=== PATIENT | male | born 1980 | race African-American/Black ===

== ENCOUNTER 2019-09-04 13:16 | Inpatient (IN) | payer OTHER ==
[2019-09-04 13:39] VITALS: BMI 20.3
--- NOTE | 2019-09-04 16:58 | HP ---
COWS - Scale Resting Pulse: 1= [place] 81-100 Sweatin=Flushed/Facial Moisture Restless Observation: 1= Difficult to Sit Still Pupil Size: 1= Pupils >than Normal (Pupils = 3 mm) Bone or Joint Aches: 1= Mild Discomfort Runny Nose/ Eye Tearin= None GI Upset > 30mins: 2= Nausea/Diarrhea Tremor Observation: 2= Slight Tremor Visible Yawning Observation: 0= None Anxiety or Irritability: 1=Feels Anxious/Irritable Goose Flesh Skin: 0=Smooth Skin COWS Score: 11 CIWA Score Nausea/Vomitin Muscle Tremors: 4-Moderate,w/Arms Extend Anxiety: 1-Mildly Anxious Agitation: 1-Slight > Activity Paroxysmal Sweats: 3 Orientation: 0-Oriented Tacttile Disturbances: 1-Very Mild Itch/Numbness Auditory Disturbances: 0-None Visual Disturbances: 0-None Headache: 0-None Present CIWA-Ar Total Score: 13 - Admission Criteria [facility] Guidelines: Admission for Medically Managed Detox: Requires at least one of the followin. CIWA greater than 12 2. Seizures within the past 24 hours 3. Delirium tremens within the past 24 hours 4. Hallucinations within the past 24 hours 5. Acute intervention needed for co occurring medical disorder 6. Acute intervention needed for co occurring psychiatric disorder 7. Severe withdrawal that cannot be handled at a lower level of care (continued vomiting, continued diarrhea, abnormal vital signs) requiring intravenous medication and/or fluids 8. Patient presents the following: CIWA greater than 12 Admission Criteria Met: Admission criteria met Admitting History and Physical - Smoking History Smoking history: Current every day smoker Have you smoked in the past 12 months: Yes Aproximately how many cigarettes per day: 15 - Alcohol/Substance Use Hx Alcohol Use: Yes (daily use) Admission [facility] Chief Complaint: I'm having withdrawal symptoms and I'm here to detox. Allergies/Adverse Reactions: Allergies Allergy/AdvReac Type Severity Reaction Status Date / Time No Known Allergies Allergy Verified 09/04/19 13:31 History of Present Illness: 38 yo presents w/ poly-substance use seeking detox. Last [facility] in 2014. Sober x 3 years until 5 months ago. Denies seizures, blackouts overdoses. ARYA: 0.017 Utox: + THC/ANYA/MOP Alcohol use began at age 13. Currently drinks 1-3 pints daily x 2 months. Last use approx 10 a.m. Heroin use began at age 31. Currently uses 2-3 bags/day. Nasal. Restarted x 2 months ago. Does not have a Narcan kit at home. Last use approx 10 a.m. Cocaine/crack use began at age 28. Currently uses $20-60 /day (Smokes and sniffs ) Marijuana use began at age 13. Currently smokes 2-6 blunts/day. Nicotine use began at age 13. Smokes 1/2 PPD. PMHx: Denies sign MHHx: Mild depression. Does not feel like harming self or others. SHx: Homeless. Unemployed. Court date 10/06/19. Patient Name: Galdino Eldridge Date: 1980 Address: [address] [place] [address] Sex: Male Rx Written Rx Dispensed Drug Quantity Days Supply Prescriber Name 06/27/2019 06/27/2019 chlordiazepoxide 25 mg capsule 15 5 Bigg, Ranti A Exam Limitations: No Limitations - Ebola screening Have you traveled outside of the country in the last 21 days: No Have you had contact with anyone from an Ebola affected area: No Have you been sick,other than usual withdrawal symptoms: No Do you have a fever: No - Review of Systems Constitutional: Chills, Diaphoresis, Unintentional Wgt. Loss EENT: reports: No Symptoms Reported Respiratory: reports: No Symptoms reported Cardiac: reports: No Symptoms Reported GI: reports: Diarrhea (Watery, brownish earlier today), Nausea, Vomiting ( Yesterday.) : reports: No Symptoms Reported Musculoskeletal: reports: No Symptoms Reported Integumentary: reports: No Symptoms Reported Neuro: reports: Tremors Endocrine: reports: Increased Thirst Hematology: reports: Anemia (lOW IRON) Psychiatric: reports: Mood/Affect Appropiate, Orientated x3, Agitated, Anxious Patient History - Patient Medical History Hx Anemia: No Hx Asthma: No Hx Chronic Obstructive Pulmonary Disease (COPD): Yes (symbicort & albuterol) Hx Cancer: No Hx Cardiac Disorders: No Hx Congestive Heart Failure: No Hx Hypertension: No Hx Hypercholesterolemia: No Hx Pacemaker: No HX Cerebrovascular Accident: No Hx Seizures: No Hx Dementia: No Hx Diabetes: No Hx Gastrointestinal Disorders: No Hx Liver Disease: No Hx Genitourinary Disorders: No Hx Sexually Transmitted Disorders: No Hx Renal Disease (ESRD): No Hx Thyroid Disease: No Hx Human Immunodeficiency Virus (HIV): No (2 mos neg) Hx Hepatitis C: No Hx Depression: Yes Hx Suicide Attempt: No Hx Bipolar Disorder: No Hx Schizophrenia: No - Patient Surgical History Past Surgical History: No Hx Neurologic Surgery: No Hx Cataract Extraction: No Hx Cardiac Surgery: No Hx Lung Surgery: No Hx Breast Surgery: No Hx Breast Biopsy: No Hx Abdominal Surgery: No Hx Appendectomy: No Hx Cholecystectomy: No Hx Genitourinary Surgery: No Hx Section: No Hx Orthopedic Surgery: No - PPD History Previous Implant?: Yes Documented Results: Negative w/proof Implanted On Prior R Admission?: Yes Date: 04/25/15 Results: Neg PPD to be Administered?: Yes - Smoking Cessation Smoking history: Current every day smoker Have you smoked in the past 12 months: Yes Aproximately how many cigarettes per day: 10 Hx Chewing Tobacco Use: No Initiated information on smoking cessation: Yes 'Breaking Loose' booklet given: 09/04/19 - Substance & Tx. History Hx Alcohol Use: Yes Hx Substance Use: Yes Substance Use Type: Alcohol, Cocaine, Heroin, Marijuana, Opiates Hx Substance Use Treatment: Yes (DETOX, REHAB, No OTP) - Substances abused Alcohol Substance route: Oral Frequency: Daily Amount used: 1-2 pints of vodka Age of first use: 13 Date of last use: 09/04/19 Heroin Substance route: Inhalation Frequency: Daily Amount used: 2-3 bags Age of first use: 36 Date of last use: 09/04/19 Cocaine Substance route: Inhalation Frequency: Daily Amount used: $40-60 Age of first use: 28 Date of last use: 09/04/19 Marijuana/Hashish Substance route: Smoking Frequency: Daily Amount used: 3-6 blunts Age of first use: 13 Date of last use: 09/03/19 Crack Substance route: Smoking Frequency: Daily Amount used: $40 -60 Age of first use: 28 Date of last use: 09/04/19 Admission Physical Exam BHS - Vital Signs Vital Signs: Vital Signs - 24 hr 09/04/19 13:31 Temperature 97.8 F Pulse Rate 86 Respiratory 20 Rate Blood Pressure 119/83 - Physical General Appearance: Yes: Nourished, Mild Distress, Tremorous, Sweating ( Increased facial moisture), Anxious HEENTM: Yes: EOMI, Hearing grossly Normal, Normocephalic, Normal Voice, JANELL ( Pupils = 3 mm), Pharynx Normal Respiratory: Yes: Lungs Clear (O2 = 97 %), Normal Breath Sounds, No Respiratory Distress Neck: Yes: No masses,lesions,Nodules, Supple Breast: Yes: Breast Exam Deferred Cardiology: Yes: Regular Rhythm, Regular Rate, S1, S2 Abdominal: Yes: Non Tender, Flat, Soft, Increased Bowel Sounds Genitourinary: Yes: Within Normal Limits Back: Yes: Normal Inspection Musculoskeletal: Yes: full range of Motion, Gait Steady Extremities: Yes: Normal Capillary Refill, Normal Range of Motion, Tremors 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: 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, Fully Oriented, Alert, Motor Strength 5/5 Integumentary: Yes: Normal Color, Warm, Diaphoresis (Increased facial moisture) Lymphatic: Yes: Within Normal Limits - Diagnostic (1) Alcohol dependence with withdrawal, uncomplicated Current Visit: Yes Status: Acute (2) Opioid dependence with withdrawal Current Visit: Yes Status: Acute (3) Cannabis dependence, uncomplicated Current Visit: Yes Status: Chronic (4) Cocaine dependence, uncomplicated Current Visit: Yes Status: Chronic (5) Nicotine dependence, cigarettes, uncomplicated Current Visit: Yes Status: Chronic Cleared for Admission [facility] - Detox or Rehab [facility] Level of Care: Medically Managed Detox Regimen/Protocol: Methadone/Librium Claeared for Rehab Admission: No Breathalyzer - Breathalyzer Breathalyzer: 0.017 Urine Drug Screen - Test Device Lot number: [id number] Expiration date: 04/30/21 - Control Is test valid?: Yes - Results Drug screen NEGATIVE: No Urine drug screen results: THC-Marijuana, ANYA-Cocaine, MOP-Opiates Inpatient Rehab Admission - Rehab Decision to Admit Inpatient rehab admission?: No
[2019-09-04] MEDS ORDERED: MAGNESIUM CITRATE 300 ML BOTTLE PO PRN (17:18)
[2019-09-04] MEDS ORDERED: IBUPROFEN 400 MG TABLET (FP) PO PRN (17:18)
[2019-09-04] MEDS ORDERED: NICOTINE POLACRILEX 2 MG GUM BUC PRN (17:18)
[2019-09-04] MEDS ORDERED: ACETAMINOPHEN 325 MG TABLET (FP) PO PRN ×2 (17:18)
[2019-09-04] MEDS ORDERED: MENTHOL/PHENOL 1 EACH UD MM PRN (17:18)
[2019-09-04] MEDS ORDERED: P-EPHED 60MG/TRIPROLIDI 2.5MG TABLET PO PRN (17:18)
[2019-09-04] MEDS ORDERED: chlordiazePOXIDE HCL 25 MG CAPSULE PO PRN (17:18)
[2019-09-04] MEDS ORDERED: MAG HYDROX/AL HYDROX/SIMETH 30 ML UNIT-DOSE CUP PO PRN (17:18)
[2019-09-04] MEDS ORDERED: MAGNESIUM HYDROX 2400MG/30ML ORAL SUSPENSION 30 ML CUP PO PRN (17:18)
[2019-09-04] MEDS ORDERED: BISMUTH SUBSALICYLATE 524 MG/30 ML UD PO PRN (17:18)
[2019-09-04] MEDS ORDERED: METHADONE HCL 10 MG TABLET (FOR DETOX USE ONLY) PO ONE (22:00)
[2019-09-04] MEDS: THIAMINE HCL 100 MG TABLET (FP) PO SCH (22:07)
[2019-09-04] MEDS: MELATONIN 5 MG TABLETS PO PRN (22:07)
[2019-09-04] MEDS: chlordiazePOXIDE HCL 25 MG CAPSULE PO SCH (22:07)
[2019-09-05] MEDS: chlordiazePOXIDE HCL 25 MG CAPSULE PO SCH ×4 (05:08→22:05)
--- NOTE | 2019-09-05 09:14 | EKG ---
Test Reason : Blood Pressure : / mmHG Vent. Rate : 059 BPM Atrial Rate : 059 BPM P-R Int : 136 ms QRS Dur : 098 ms QT Int : 434 ms P-R-T Axes : 044 056 051 degrees QTc Int : 429 ms SINUS BRADYCARDIA INCOMPLETE RIGHT BUNDLE BRANCH BLOCK BORDERLINE ECG NO PREVIOUS ECGS AVAILABLE Confirmed by MD Leonor, Jasvir ([id number]) on 09/05/2019 9:14:26 AM Referred By: GREER VILLARREAL Confirmed By:Jasvir Galvez MD
[2019-09-05 09:35] LABS: HEMATOCRIT 38.3 % (35.4-49); HEMOGLOBIN 12.9 GM/dL (11.7-16.9); MCH 32.9 pg (25.7-33.7); MCHC 33.7 g/dl (32.0-35.9); MEAN CELL VOLUME 97.7 fl (80-96); MEAN PLT VOLUME 8.5 fl (7.5-11.1); PLATELET COUNT 210 K/MM3 (134-434); RBC 3.92 M/mm3 (4.00-5.60); RDW 14.1 % (11.9-15.9); WHITE BLOOD COUNT 5.4 K/mm3 (4.0-10.0)
[2019-09-05 09:51] LABS: ALBUMIN 3.5 g/dl (3.4-5.0); BILIRUBIN,TOTAL 0.4 mg/dL (0.2-1); BLOOD UREA NITROGEN 20.7 mg/dL (7-18); CALCIUM 8.8 mg/dL (8.5-10.1); POTASSIUM 4.6 mmol/L (3.5-5.1); TOT PROT 6.4 g/dl (6.4-8.2)
[2019-09-05] MEDS ORDERED: METHADONE HCL 5 MG TABLET (FOR DETOX USE ONLY) PO ONE (10:00)
[2019-09-05] MEDS: NICOTINE 14 MG/24 HOURS TOPICAL PATCH TD SCH (10:26)
[2019-09-05] MEDS: PRENATAL VITAMINS W/ FOLIC ACID TABLET (FP) PO SCH (10:29)
--- NOTE | 2019-09-05 13:11 | PN ---
[facility] CIWA - CIWA Score Nausea/Vomitin-No Nausea/No Vomiting Muscle Tremors: 3 Anxiety: 3 Agitation: 2 Paroxysmal Sweats: 2 Orientation: 0-Oriented Tacttile Disturbances: 0-None Auditory Disturbances: 0-None Visual Disturbances: 0-None Headache: 0-None Present CIWA-Ar Total Score: 10 S COWS - Scale Resting Pulse: 0= [place] 80 or Below Sweatin= Chills/Flushing Restless Observation: 0= Sits Still Pupil Size: 0= Normal to Room Light Bone or Joint Aches: 1= Mild Discomfort Runny Nose/ Eye Tearin= None GI Upset > 30mins: 2= Nausea/Diarrhea Tremor Observation of Outstretched Hands: 0= None Yawning Observation: 2= >3x During Session Anxiety or Irritability: 1=Feels Anxious/Irritable Goose Flesh Skin: 3=Piloerection COWS Score: 10 [facility] Progress Note (SOAP) Subjective: 38 years old male admitted on 09/04/19 for alcohol and opiate withdrawal sx management treated wtih librium and methadone detox regimen patient tolerated well ate breakfast resting on bed limited conversation with staff Objective: 09/05/19 13:11 Vital Signs Temperature 97.3 F L 09/05/19 13:08 Pulse Rate 62 09/05/19 13:08 Respiratory Rate 16 09/05/19 13:08 Blood Pressure 103/59 L 09/05/19 13:08 O2 Sat by Pulse Oximetry (%) Laboratory Last Values WBC 5.4 K/mm3 (4.0-10.0) 09/05/19 08:00 RBC 3.92 M/mm3 (4.00-5.60) L 09/05/19 08:00 Hgb 12.9 GM/dL (11.7-16.9) 09/05/19 08:00 Hct 38.3 % (35.4-49) 09/05/19 08:00 MCV 97.7 fl (80-96) H 09/05/19 08:00 MCH 32.9 pg (25.7-33.7) 09/05/19 08:00 MCHC 33.7 g/dl (32.0-35.9) 09/05/19 08:00 RDW 14.1 % (11.9-15.9) 09/05/19 08:00 Plt Count 210 K/MM3 (134-434) 09/05/19 08:00 MPV 8.5 fl (7.5-11.1) 09/05/19 08:00 Sodium 140 mmol/L (136-145) 09/05/19 08:00 Potassium 4.6 mmol/L (3.5-5.1) 09/05/19 08:00 Chloride 108 mmol/L (98-107) H 09/05/19 08:00 Carbon Dioxide 29 mmol/L (21-32) 09/05/19 08:00 Anion Gap 4 MMOL/L (8-16) L 09/05/19 08:00 BUN 20.7 mg/dL (7-18) H 09/05/19 08:00 Creatinine 1.0 mg/dL (0.55-1.3) 09/05/19 08:00 Est GFR (CKD-EPI)AfAm 110.94 09/05/19 08:00 Est GFR (CKD-EPI)NonAf 95.72 09/05/19 08:00 Random Glucose 90 mg/dL (74-106) 09/05/19 08:00 Calcium 8.8 mg/dL (8.5-10.1) 09/05/19 08:00 Total Bilirubin 0.4 mg/dL (0.2-1) 09/05/19 08:00 AST 18 U/L (15-37) 09/05/19 08:00 ALT 21 U/L (13-61) 09/05/19 08:00 Alkaline Phosphatase 56 U/L (45-117) 09/05/19 08:00 Total Protein 6.4 g/dl (6.4-8.2) 09/05/19 08:00 Albumin 3.5 g/dl (3.4-5.0) 09/05/19 08:00 HIV 1&2 Antibody Screen Negative 09/05/19 08:00 HIV P24 Antigen Negative 09/05/19 08:00 lab noted Assessment: 09/05/19 13:11 alcohol and opiate withdrawal sx Plan: continue librium and methadone detox regimen
[2019-09-05] MEDS: THIAMINE HCL 100 MG TABLET (FP) PO SCH (22:05)
[2019-09-05] MEDS: MELATONIN 5 MG TABLETS PO PRN (22:06)
[2019-09-06] MEDS: chlordiazePOXIDE HCL 25 MG CAPSULE PO SCH ×4 (05:14→22:08)
--- NOTE | 2019-09-06 09:59 | PN ---
S CIWA - CIWA Score Nausea/Vomitin-No Nausea/No Vomiting Muscle Tremors: 2 Anxiety: 3 Agitation: 2 Paroxysmal Sweats: 2 Orientation: 0-Oriented Tacttile Disturbances: 0-None Auditory Disturbances: 0-None Visual Disturbances: 0-None Headache: 0-None Present CIWA-Ar Total Score: 9 [facility] COWS - Scale Resting Pulse: 0= [place] 80 or Below Sweatin= Chills/Flushing Restless Observation: 0= Sits Still Pupil Size: 0= Normal to Room Light Bone or Joint Aches: 1= Mild Discomfort Runny Nose/ Eye Tearin= Nasal Congestion GI Upset > 30mins: 1= Stomach Cramp Tremor Observation of Outstretched Hands: 2= Slight Tremor Visible Yawning Observation: 1= 1-2x During Session Anxiety or Irritability: 2=Irritable/Anxious Goose Flesh Skin: 0=Smooth Skin COWS Score: 9 S Progress Note (SOAP) Subjective: 38 years old male admitted on 09/04/19 for alcohol and opiate withdrawal sx management treated with librium and methadone detox regimen change methadone 15 mg maintenance to detox regimen patient tolerated well Objective: 09/06/19 09:59 Vital Signs Temperature 97.8 F 09/06/19 09:19 Pulse Rate 60 09/06/19 09:19 Respiratory Rate 16 09/06/19 09:19 Blood Pressure 100/63 09/06/19 09:19 O2 Sat by Pulse Oximetry (%) Laboratory Last Values WBC 5.4 K/mm3 (4.0-10.0) 09/05/19 08:00 RBC 3.92 M/mm3 (4.00-5.60) L 09/05/19 08:00 Hgb 12.9 GM/dL (11.7-16.9) 09/05/19 08:00 Hct 38.3 % (35.4-49) 09/05/19 08:00 MCV 97.7 fl (80-96) H 09/05/19 08:00 MCH 32.9 pg (25.7-33.7) 09/05/19 08:00 MCHC 33.7 g/dl (32.0-35.9) 09/05/19 08:00 RDW 14.1 % (11.9-15.9) 09/05/19 08:00 Plt Count 210 K/MM3 (134-434) 09/05/19 08:00 MPV 8.5 fl (7.5-11.1) 09/05/19 08:00 Sodium 140 mmol/L (136-145) 09/05/19 08:00 Potassium 4.6 mmol/L (3.5-5.1) 09/05/19 08:00 Chloride 108 mmol/L (98-107) H 09/05/19 08:00 Carbon Dioxide 29 mmol/L (21-32) 09/05/19 08:00 Anion Gap 4 MMOL/L (8-16) L 09/05/19 08:00 BUN 20.7 mg/dL (7-18) H 09/05/19 08:00 Creatinine 1.0 mg/dL (0.55-1.3) 09/05/19 08:00 Est GFR (CKD-EPI)AfAm 110.94 09/05/19 08:00 Est GFR (CKD-EPI)NonAf 95.72 09/05/19 08:00 Random Glucose 90 mg/dL (74-106) 09/05/19 08:00 Calcium 8.8 mg/dL (8.5-10.1) 09/05/19 08:00 Total Bilirubin 0.4 mg/dL (0.2-1) 09/05/19 08:00 AST 18 U/L (15-37) 09/05/19 08:00 ALT 21 U/L (13-61) 09/05/19 08:00 Alkaline Phosphatase 56 U/L (45-117) 09/05/19 08:00 Total Protein 6.4 g/dl (6.4-8.2) 09/05/19 08:00 Albumin 3.5 g/dl (3.4-5.0) 09/05/19 08:00 RPR Titer Nonreactive (NONREACTIVE) 09/05/19 08:00 HIV 1&2 Antibody Screen Negative 09/05/19 08:00 HIV P24 Antigen Negative 09/05/19 08:00 lab noted Assessment: 09/06/19 09:59 alcohol and opiate withdrawal sx Plan: continue librium and methadone detox regimen
[2019-09-06] MEDS ORDERED: METHADONE HCL 5 MG TABLET (FOR DETOX USE ONLY) PO ONE (10:00)
[2019-09-06] MEDS ORDERED: METHADONE HCL 10 MG TABLET PO ONE (10:00)
[2019-09-06] MEDS: PRENATAL VITAMINS W/ FOLIC ACID TABLET (FP) PO SCH (10:43)
[2019-09-06] MEDS: NICOTINE 14 MG/24 HOURS TOPICAL PATCH TD SCH (10:43)
[2019-09-06] MEDS ORDERED: ONDANSETRON *ODT* 4 MG TABLET SL ONE (14:29)
[2019-09-06] MEDS: THIAMINE HCL 100 MG TABLET (FP) PO SCH (22:08)
[2019-09-06] MEDS: MELATONIN 5 MG TABLETS PO PRN (22:08)
[2019-09-07] MEDS ORDERED: chlordiazePOXIDE HCL 10 MG CAPSULE PO PRN
[2019-09-07] MEDS: chlordiazePOXIDE HCL 10 MG CAPSULE PO SCH ×4 (05:40→22:12)
[2019-09-07] MEDS ORDERED: METHADONE HCL 10 MG TABLET (FOR DETOX USE ONLY) PO ONE (10:00)
[2019-09-07] MEDS: NICOTINE 14 MG/24 HOURS TOPICAL PATCH TD SCH (10:22)
[2019-09-07] MEDS: PRENATAL VITAMINS W/ FOLIC ACID TABLET (FP) PO SCH (10:22)
[2019-09-07 12:01] LABS: PH,URINE 5.5 (5.0-8.0); URINE APPEARANCE CLEAR; URINE BILIRUBIN NEGATIVE (NEGATIVE); URINE COLOR YELLOW; URINE GLUCOSE (UA) NEGATIVE (NEGATIVE); URINE KETONE NEGATIVE (NEGATIVE); URINE LEUK ESTERASE NEGATIVE (NEGATIVE); URINE NITRITE NEGATIVE (NEGATIVE); URINE PROTEIN NEGATIVE (NEGATIVE)
--- NOTE | 2019-09-07 14:32 | PN ---
S CIWA - CIWA Score Nausea/Vomitin-No Nausea/No Vomiting Muscle Tremors: 2 Anxiety: 2 Agitation: 2 Paroxysmal Sweats: No Perspiration Orientation: 0-Oriented Tacttile Disturbances: 0-None Auditory Disturbances: 0-None Visual Disturbances: 0-None Headache: 0-None Present CIWA-Ar Total Score: 6 [facility] COWS - Scale Resting Pulse: 0= [place] 80 or Below Sweatin= Chills/Flushing Restless Observation: 0= Sits Still Pupil Size: 0= Normal to Room Light Bone or Joint Aches: 1= Mild Discomfort Runny Nose/ Eye Tearin= Nasal Congestion GI Upset > 30mins: 1= Stomach Cramp Tremor Observation of Outstretched Hands: 1= Tremor [place], Not Seen Yawning Observation: 0= None Anxiety or Irritability: 1=Feels Anxious/Irritable Goose Flesh Skin: 0=Smooth Skin COWS Score: 6 S Progress Note (SOAP) Subjective: 38 years old male admitted on 09/04/19 for alcohol and opiate withdrawal sx management treated with librium and methadone detox regimen patient tolerated well less tremor mild body aches ate breakfast tolerated food and fluid well Objective: 09/07/19 14:33 Vital Signs Temperature 99 F 09/07/19 13:10 Pulse Rate 52 L 09/07/19 13:10 Respiratory Rate 18 09/07/19 13:10 Blood Pressure 96/64 09/07/19 13:10 O2 Sat by Pulse Oximetry (%) Laboratory Last Values WBC 5.4 K/mm3 (4.0-10.0) 09/05/19 08:00 RBC 3.92 M/mm3 (4.00-5.60) L 09/05/19 08:00 Hgb 12.9 GM/dL (11.7-16.9) 09/05/19 08:00 Hct 38.3 % (35.4-49) 09/05/19 08:00 MCV 97.7 fl (80-96) H 09/05/19 08:00 MCH 32.9 pg (25.7-33.7) 09/05/19 08:00 MCHC 33.7 g/dl (32.0-35.9) 09/05/19 08:00 RDW 14.1 % (11.9-15.9) 09/05/19 08:00 Plt Count 210 K/MM3 (134-434) 09/05/19 08:00 MPV 8.5 fl (7.5-11.1) 09/05/19 08:00 Sodium 140 mmol/L (136-145) 09/05/19 08:00 Potassium 4.6 mmol/L (3.5-5.1) 09/05/19 08:00 Chloride 108 mmol/L (98-107) H 09/05/19 08:00 Carbon Dioxide 29 mmol/L (21-32) 09/05/19 08:00 Anion Gap 4 MMOL/L (8-16) L 09/05/19 08:00 BUN 20.7 mg/dL (7-18) H 09/05/19 08:00 Creatinine 1.0 mg/dL (0.55-1.3) 09/05/19 08:00 Est GFR (CKD-EPI)AfAm 110.94 09/05/19 08:00 Est GFR (CKD-EPI)NonAf 95.72 09/05/19 08:00 Random Glucose 90 mg/dL (74-106) 09/05/19 08:00 Calcium 8.8 mg/dL (8.5-10.1) 09/05/19 08:00 Total Bilirubin 0.4 mg/dL (0.2-1) 09/05/19 08:00 AST 18 U/L (15-37) 09/05/19 08:00 ALT 21 U/L (13-61) 09/05/19 08:00 Alkaline Phosphatase 56 U/L (45-117) 09/05/19 08:00 Total Protein 6.4 g/dl (6.4-8.2) 09/05/19 08:00 Albumin 3.5 g/dl (3.4-5.0) 09/05/19 08:00 Urine Color Yellow 09/07/19 10:00 Urine Appearance Clear 09/07/19 10:00 Urine pH 5.5 (5.0-8.0) D 09/07/19 10:00 Ur Specific [place] 1.012 (1.010-1.035) 09/07/19 10:00 Urine Protein Negative (NEGATIVE) 09/07/19 10:00 Urine Glucose (UA) Negative (NEGATIVE) 09/07/19 10:00 Urine Ketones Negative (NEGATIVE) 09/07/19 10:00 Urine Blood Negative (NEGATIVE) 09/07/19 10:00 Urine Nitrite Negative (NEGATIVE) 09/07/19 10:00 Urine Bilirubin Negative (NEGATIVE) 09/07/19 10:00 Urine Urobilinogen 1.0 mg/dL (0.2-1.0) 09/07/19 10:00 Ur Leukocyte Esterase Negative (NEGATIVE) 09/07/19 10:00 RPR Titer Nonreactive (NONREACTIVE) 09/05/19 08:00 HIV 1&2 Antibody Screen Negative 09/05/19 08:00 HIV P24 Antigen Negative 09/05/19 08:00 lab noted Assessment: 09/07/19 14:34 alcohol and opiate withdrawal sx Plan: continue librium and methadone detox regimen
[2019-09-07] MEDS: MELATONIN 5 MG TABLETS PO PRN (22:12)
[2019-09-07] MEDS: THIAMINE HCL 100 MG TABLET (FP) PO SCH (22:12)
[2019-09-08] MEDS: chlordiazePOXIDE HCL 10 MG CAPSULE PO SCH ×2 (05:01→17:32)
[2019-09-08] MEDS ORDERED: METHADONE HCL 5 MG TABLET (FOR DETOX USE ONLY) PO ONE (06:00)
--- NOTE | 2019-09-08 09:26 | PN ---
[facility] CIWA - CIWA Score Nausea/Vomitin-No Nausea/No Vomiting Muscle Tremors: 1-None Visible, but [place] Anxiety: 1-Mildly Anxious Agitation: 1-Slight > Activity Paroxysmal Sweats: No Perspiration Orientation: 0-Oriented Tacttile Disturbances: 0-None Auditory Disturbances: 0-None Visual Disturbances: 0-None Headache: 0-None Present CIWA-Ar Total Score: 3 [facility] Progress Note (SOAP) Subjective: alert,irritable,anxious Objective: 09/08/19 09:25 Vital Signs Temperature 97.6 F 09/08/19 09:20 Pulse Rate 49 L 09/08/19 09:20 Respiratory Rate 18 09/08/19 09:20 Blood Pressure 106/72 09/08/19 09:20 O2 Sat by Pulse Oximetry (%) Assessment: 09/08/19 09:25 withdrawal symptom Plan: continue detox,discharge in am
[2019-09-08] MEDS: PRENATAL VITAMINS W/ FOLIC ACID TABLET (FP) PO SCH (09:58)
[2019-09-08] MEDS: NICOTINE 14 MG/24 HOURS TOPICAL PATCH TD SCH (09:58)
[2019-09-08] MEDS ORDERED: chlordiazePOXIDE HCL 10 MG CAPSULE PO ONE (20:59)
[2019-09-08] MEDS: THIAMINE HCL 100 MG TABLET (FP) PO SCH (21:08)
[2019-09-08] MEDS: MELATONIN 5 MG TABLETS PO PRN (21:09)
[2019-09-08 21:34] VITALS: PULSE 62
[2019-09-09] MEDS ORDERED: chlordiazePOXIDE HCL 10 MG CAPSULE PO ONE (05:00)
[2019-09-09 06:05] VITALS: BP 91/69; TEMP 97.6
== END 2019-09-09 06:40 | disposition home or self-care (01) | DRG 773 ==
LOC: YASAS 13:16 → Y3N 17:49
PROVIDERS: ADMIT Allergy & Immunology; ATTEND Allergy & Immunology
PROC: HZ2ZZZZ Detoxification Services for Substance Abuse Treatment (ICD-10-PCS; principal; 2019-09-04)
DX: F10.230 Alcohol dependence with withdrawal, uncomplicated (principal); F11.23 Opioid dependence with withdrawal; F14.20 Cocaine dependence, uncomplicated; F12.20 Cannabis dependence, uncomplicated; F17.210 Nicotine dependence, cigarettes, uncomplicated
CPT/HCPCS: 36415; 80053; 81003; 85027; 86593; 87389; 93005; 93010; Q0162

== ENCOUNTER 2019-10-13 12:52 | Inpatient (IN) | payer OTHER ==
[2019-10-13 14:51] VITALS: BMI 22.8
--- NOTE | 2019-10-13 16:09 | HP ---
CIWA Score Nausea/Vomitin Muscle Tremors: 1-None Visible, but [place] Anxiety: 1-Mildly Anxious Agitation: 1-Slight > Activity Paroxysmal Sweats: No Perspiration Orientation: 0-Oriented Tacttile Disturbances: 0-None Auditory Disturbances: 0-None Visual Disturbances: 0-None Headache: 0-None Present CIWA-Ar Total Score: 5 - Admission Criteria OASAS Guidelines: Admission for Medically Managed Detox: Requires at least one of the followin. CIWA greater than 12 2. Seizures within the past 24 hours 3. Delirium tremens within the past 24 hours 4. Hallucinations within the past 24 hours 5. Acute intervention needed for co occurring medical disorder 6. Acute intervention needed for co occurring psychiatric disorder 7. Severe withdrawal that cannot be handled at a lower level of care (continued vomiting, continued diarrhea, abnormal vital signs) requiring intravenous medication and/or fluids 8. Admitting History and Physical - Admission History of Present Illness: Pt is a 39 yo M with no known PMHx presenting for detox from alcohol, also uses Marijuana and cocaine. Denies mental health issues, Said he used paxel in past. ETOH Last drink last night about 11pm Drank 2pints of liqour Drinks 1-3 pints of liqour daily Has been drinking daily for the past 4 months Last here 09/19 also went to detox in [facility] program Has had rehab in past for 28 days about 4 months ago Never seized, never had blackouts, but gets the shakes Started to use at 13 years old THC-utox positive Uses 3-6blunts a day Started to use at 13 years old Last use this am -2 blunts Cocaine - utox positive Snorts cocaine $20-40 a day Snorts most days Hep C- neg in past HIV- neg in past- 2 weeks ago Does not inject cocaine Last use- yesterday, used $30 worth Benzos- utox positive xanax- lately sporadic use 7-8 sticks a week Last use 5 days ago Nicotine 10 cigs/day Started to smoke at 13 weeks Wants the patch and gum Heroin Stopped 1-2 weeks ago Was snorting 2 bags per day, never injected, never overdosed Stopped for no reason, had some withdrawal symptoms Did not use any medications to help the withdrawal and has never been in a MMTP or suboxone program FHX No addiction hx No medical problems Mother, 2 sisters, 1 brother Social hx: Homeless for 4 months, unable to keep up with bills 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 Allergies/Adverse Reactions: Allergies Allergy/AdvReac Type Severity Reaction Status Date / Time No Known Allergies Allergy Verified 10/13/19 14:45 - Ebola screening Have you traveled outside of the country in the last 21 days: No Have you had contact with anyone from an Ebola affected area: No Do you have a fever: No - Review of Systems Constitutional: Chills EENT: reports: No Symptoms Reported Respiratory: reports: No Symptoms reported Patient History - Patient Medical History Hx Anemia: No Hx Asthma: No Hx Chronic Obstructive Pulmonary Disease (COPD): Yes (symbicort & albuterol) Hx Cancer: No Hx Cardiac Disorders: No Hx Congestive Heart Failure: No Hx Hypertension: No Hx Hypercholesterolemia: No Hx Pacemaker: No HX Cerebrovascular Accident: No Hx Seizures: No Hx Dementia: No Hx Diabetes: No Hx Gastrointestinal Disorders: No Hx Liver Disease: No Hx Genitourinary Disorders: No Hx Sexually Transmitted Disorders: No Hx Renal Disease (ESRD): No Hx Thyroid Disease: No Hx Human Immunodeficiency Virus (HIV): No (2 mos neg) Hx Hepatitis C: No Hx Depression: Yes Hx Suicide Attempt: No Hx Bipolar Disorder: No Hx Schizophrenia: No - Patient Surgical History Past Surgical History: No Hx Neurologic Surgery: No Hx Cataract Extraction: No Hx Cardiac Surgery: No Hx Lung Surgery: No Hx Breast Surgery: No Hx Breast Biopsy: No Hx Abdominal Surgery: No Hx Appendectomy: No Hx Cholecystectomy: No Hx Genitourinary Surgery: No Hx Section: No Hx Orthopedic Surgery: No - PPD History Date: 09/06/19 Results: Neg - Smoking Cessation Smoking history: Current every day smoker Have you smoked in the past 12 months: Yes Aproximately how many cigarettes per day: 10 Hx Chewing Tobacco Use: No Initiated information on smoking cessation: Yes 'Breaking Loose' booklet given: 10/13/19 - Substances abused Alcohol Substance route: Oral Frequency: Daily Amount used: 1-2 pints of vodka Age of first use: 13 Date of last use: 10/12/19 Heroin Substance route: Inhalation Frequency: Daily Amount used: 2-3 bags Age of first use: 36 Date of last use: 10/06/19 Cocaine Substance route: Inhalation Frequency: 3-6 times per week Amount used: $40-60 Age of first use: 28 Date of last use: 10/12/19 Marijuana/Hashish Substance route: Smoking Frequency: Daily Amount used: 3-6 blunts Age of first use: 13 Date of last use: 10/13/19 Crack Substance route: Smoking Frequency: Daily Amount used: $40 -60 Age of first use: 28 Date of last use: 09/04/19 Admission Physical Exam [facility] - Vital Signs Vital Signs: Vital Signs - 24 hr 10/13/19 14:45 Temperature 97.8 F Pulse Rate 88 Respiratory 20 Rate Blood Pressure 110/68 - Physical General Appearance: Yes: No Apparent Distress HEENTM: Yes: Within Normal Limits Respiratory: Yes: Chest Non-Tender, Lungs Clear, Normal Breath Sounds Neck: Yes: Within Normal Limits Breast: Yes: Breast Exam Deferred Cardiology: Yes: Regular Rhythm, Regular Rate Abdominal: Yes: Within Normal Limits Genitourinary: Yes: Within Normal Limits Back: Yes: Within Normal Limits Musculoskeletal: Yes: Within Normal Limits Extremities: Yes: Within Normal Limits 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: Fully Oriented, Alert, Motor Strength 5/5 Integumentary: Yes: Within Normal Limits Lymphatic: Yes: Within Normal Limits - Diagnostic (1) Alcohol dependence Current Visit: No Status: Active Cleared for Admission [facility] - Detox or Rehab [facility] Level of Care: Medically Supervised Breathalyzer - Breathalyzer Breathalyzer: 0 Urine Drug Screen - Test Device Lot number: [id number] Expiration date: 05/31/21 - Control Is test valid?: Yes - Results Drug screen NEGATIVE: No Urine drug screen results: THC-Marijuana, ANYA-Cocaine, MOP-Opiates Inpatient Rehab Admission - Rehab Decision to Admit Inpatient rehab admission?: Yes - Initial Determination Are CD services needed?: Yes Free of communicable disease: Yes Not in need of hospitalization: Yes - Rehab Admission Criteria Previous failed treatment: Yes Poor recovery environment: Yes Comorbidities: Yes Lacks judgement: Yes Patient is meeting Inpatient Rehab admission criteria:: Yes (For alcohol, marijuana and cocaine use)
[2019-10-13] MEDS ORDERED: IBUPROFEN 400 MG TABLET (FP) PO PRN (16:25)
[2019-10-13] MEDS ORDERED: MENTHOL/PHENOL 1 EACH UD MM PRN (16:25)
[2019-10-13] MEDS ORDERED: P-EPHED 60MG/TRIPROLIDI 2.5MG TABLET PO PRN (16:25)
[2019-10-13] MEDS ORDERED: guaiFENesin 200 MG/10 ML 10 ML UNIT-DOSE CUPS PO PRN (16:25)
[2019-10-13] MEDS ORDERED: MAGNESIUM HYDROX 2400MG/30ML ORAL SUSPENSION 30 ML CUP PO PRN (16:25)
[2019-10-13] MEDS ORDERED: LOPERAMIDE HCL 2 MG CAPSULE PO PRN (16:25)
[2019-10-13] MEDS ORDERED: hydrOXYzine PAMOATE 50 MG CAPSULE (FP) PO PRN (16:25)
[2019-10-13] MEDS ORDERED: MAGNESIUM CITRATE 300 ML BOTTLE PO PRN (16:25)
[2019-10-13] MEDS ORDERED: ACETAMINOPHEN 325 MG TABLET (FP) PO PRN (16:25)
[2019-10-13] MEDS ORDERED: MAG HYDROX/AL HYDROX/SIMETH 30 ML UNIT-DOSE CUP PO PRN (16:25)
[2019-10-13] MEDS ORDERED: PROCHLORPERAZINE MALEATE 5 MG TABLET PO PRN (16:27)
--- NOTE | 2019-10-13 17:52 | PN ---
Teaching Attending Note Name of Resident: Katia Jaimes ATTENDING PHYSICIAN STATEMENT I saw and evaluated the patient. I reviewed the resident's note and discussed the case with the resident. I agree with the resident's findings and plan as documented. SUBJECTIVE: pt here for rehab from cocaine , cannabis , alcohol and opiate use . OBJECTIVE: wnwd Vital Signs - 24 hr 10/13/19 14:45 Temperature 97.8 F Pulse Rate 88 Respiratory 20 Rate Blood Pressure 110/68 ASSESSMENT AND PLAN: AUD/ Cocaine dependence / Cannabis dependence / OUD - rehab
[2019-10-13] MEDS: THIAMINE HCL 100 MG TABLET (FP) PO SCH (21:38)
[2019-10-14] MEDS: PRENATAL VITAMINS W/ FOLIC ACID TABLET (FP) PO SCH (10:27)
[2019-10-14] MEDS: NICOTINE 7 MG/24 HOURS TOPICAL PATCH TD SCH (10:27)
[2019-10-14 10:31] LABS: HEMATOCRIT 41.1 % (35.4-49); HEMOGLOBIN 13.9 GM/dL (11.7-16.9); MCH 32.8 pg (25.7-33.7); MCHC 33.7 g/dl (32.0-35.9); MEAN CELL VOLUME 97.4 fl (80-96); MEAN PLT VOLUME 8.1 fl (7.5-11.1); PLATELET COUNT 213 K/MM3 (134-434); RBC 4.22 M/mm3 (4.00-5.60); RDW 14.3 % (11.9-15.9)
[2019-10-14 10:49] LABS: ALBUMIN 3.4 g/dl (3.4-5.0); BILIRUBIN,TOTAL 1.1 mg/dL (0.2-1); BLOOD UREA NITROGEN 19.2 mg/dL (7-18); CALCIUM 8.8 mg/dL (8.5-10.1); CREATININE 1.1 mg/dL (0.55-1.3); POTASSIUM 3.9 mmol/L (3.5-5.1); TOT PROT 6.6 g/dl (6.4-8.2)
[2019-10-14] MEDS: MELATONIN 5 MG TABLETS PO PRN (21:32)
[2019-10-14] MEDS: THIAMINE HCL 100 MG TABLET (FP) PO SCH (21:32)
[2019-10-14] MEDS: NICOTINE POLACRILEX 2 MG GUM BC PRN (21:32)
[2019-10-15] MEDS: NICOTINE 7 MG/24 HOURS TOPICAL PATCH TD SCH (09:58)
[2019-10-15] MEDS: PRENATAL VITAMINS W/ FOLIC ACID TABLET (FP) PO SCH (09:58)
[2019-10-15 11:40] LABS: PH,URINE 8.5 (5.0-8.0); URINE APPEARANCE TURBID; URINE BILIRUBIN NEGATIVE (NEGATIVE); URINE COLOR YELLOW; URINE GLUCOSE (UA) NEGATIVE (NEGATIVE); URINE KETONE NEGATIVE (NEGATIVE); URINE LEUK ESTERASE NEGATIVE (NEGATIVE); URINE NITRITE NEGATIVE (NEGATIVE); URINE PROTEIN NEGATIVE (NEGATIVE)
[2019-10-15] MEDS: NICOTINE POLACRILEX 2 MG GUM BC PRN (19:46)
[2019-10-15] MEDS: MELATONIN 5 MG TABLETS PO PRN (21:10)
[2019-10-15] MEDS: THIAMINE HCL 100 MG TABLET (FP) PO SCH (21:10)
[2019-10-16] MEDS: NICOTINE 7 MG/24 HOURS TOPICAL PATCH TD SCH (10:17)
[2019-10-16] MEDS: PRENATAL VITAMINS W/ FOLIC ACID TABLET (FP) PO SCH (10:17)
[2019-10-16] MEDS: NICOTINE POLACRILEX 2 MG GUM BC PRN ×2 (20:17→23:00)
[2019-10-16] MEDS: MELATONIN 5 MG TABLETS PO PRN (21:53)
[2019-10-16] MEDS: THIAMINE HCL 100 MG TABLET (FP) PO SCH (21:53)
--- NOTE | 2019-10-17 10:27 | PN ---
[facility] Progress Note Note: patient admitted to rehab. Last 4 admissions reviewed: patient has no safety issues but distant history of suicide attempts. labs, orders, home medications, and problem list reviewed. Will continue to monitor. CBC, BMP 10/14/19 08:10 10/14/19 08:10 Vital Signs (72 hours) Vital Signs Period Temp Pulse Resp BP Sys/Myles Pulse Ox Last 24 Hr 98 F 54 16-18 96/62
[2019-10-17] MEDS: NICOTINE 7 MG/24 HOURS TOPICAL PATCH TD SCH (10:43)
[2019-10-17] MEDS: PRENATAL VITAMINS W/ FOLIC ACID TABLET (FP) PO SCH (10:43)
[2019-10-17] MEDS: NICOTINE POLACRILEX 2 MG GUM BC PRN ×2 (13:03→19:12)
[2019-10-17] MEDS: THIAMINE HCL 100 MG TABLET (FP) PO SCH (21:12)
[2019-10-17] MEDS: MELATONIN 5 MG TABLETS PO PRN (21:12)
[2019-10-18] MEDS: PRENATAL VITAMINS W/ FOLIC ACID TABLET (FP) PO SCH (10:16)
[2019-10-18] MEDS: NICOTINE 7 MG/24 HOURS TOPICAL PATCH TD SCH (10:16)
[2019-10-18] MEDS: NICOTINE POLACRILEX 2 MG GUM BC PRN ×3 (13:13→20:50)
[2019-10-18] MEDS: MELATONIN 5 MG TABLETS PO PRN (21:16)
[2019-10-18] MEDS: THIAMINE HCL 100 MG TABLET (FP) PO SCH (21:16)
[2019-10-19] MEDS: NICOTINE 7 MG/24 HOURS TOPICAL PATCH TD SCH (10:31)
[2019-10-19] MEDS: PRENATAL VITAMINS W/ FOLIC ACID TABLET (FP) PO SCH (10:31)
[2019-10-19] MEDS: NICOTINE POLACRILEX 2 MG GUM BC PRN ×2 (16:36→21:40)
[2019-10-19] MEDS: THIAMINE HCL 100 MG TABLET (FP) PO SCH (21:40)
[2019-10-19] MEDS: MELATONIN 5 MG TABLETS PO PRN (21:40)
[2019-10-20] MEDS: NICOTINE 7 MG/24 HOURS TOPICAL PATCH TD SCH (10:33)
[2019-10-20] MEDS: PRENATAL VITAMINS W/ FOLIC ACID TABLET (FP) PO SCH (10:33)
[2019-10-20] MEDS: NICOTINE POLACRILEX 2 MG GUM BC PRN ×2 (17:27→21:19)
[2019-10-20] MEDS: THIAMINE HCL 100 MG TABLET (FP) PO SCH (21:18)
[2019-10-20] MEDS: MELATONIN 5 MG TABLETS PO PRN (21:18)
[2019-10-21] MEDS: NICOTINE 7 MG/24 HOURS TOPICAL PATCH TD SCH (10:35)
[2019-10-21] MEDS: PRENATAL VITAMINS W/ FOLIC ACID TABLET (FP) PO SCH (10:35)
[2019-10-21] MEDS: NICOTINE POLACRILEX 2 MG GUM BC PRN ×2 (12:35→21:13)
[2019-10-21] MEDS: THIAMINE HCL 100 MG TABLET (FP) PO SCH (21:13)
[2019-10-22] MEDS: NICOTINE 7 MG/24 HOURS TOPICAL PATCH TD SCH (10:10)
[2019-10-22] MEDS: PRENATAL VITAMINS W/ FOLIC ACID TABLET (FP) PO SCH (10:10)
[2019-10-22] MEDS: NICOTINE POLACRILEX 2 MG GUM BC PRN ×2 (17:35→22:35)
[2019-10-22] MEDS: THIAMINE HCL 100 MG TABLET (FP) PO SCH (22:33)
[2019-10-22] MEDS: MELATONIN 5 MG TABLETS PO PRN (22:34)
[2019-10-23] MEDS: NICOTINE POLACRILEX 2 MG GUM BC PRN ×3 (07:57→21:09)
[2019-10-23] MEDS: PRENATAL VITAMINS W/ FOLIC ACID TABLET (FP) PO SCH (10:15)
[2019-10-23] MEDS: NICOTINE 7 MG/24 HOURS TOPICAL PATCH TD SCH (10:15)
[2019-10-23] MEDS: THIAMINE HCL 100 MG TABLET (FP) PO SCH (21:09)
[2019-10-23] MEDS: MELATONIN 5 MG TABLETS PO PRN (21:09)
[2019-10-24] MEDS: PRENATAL VITAMINS W/ FOLIC ACID TABLET (FP) PO SCH (09:55)
[2019-10-24] MEDS: NICOTINE 7 MG/24 HOURS TOPICAL PATCH TD SCH (09:55)
--- NOTE | 2019-10-24 11:18 | PN ---
[facility] Progress Note (SOAP) Subjective: patient reported this morning that his throat closes up after drinking milk. Upon interviewing the patient, he reported that he drinks milk without a problem , except if he lies down after he eats. Then it feels like something is in his throat. Denies burning, nausea, stomach pain. Objective: 10/24/19 11:16 Vital Signs Period Temp Pulse Resp BP Sys/Myles Pulse Ox Last 24 Hr 97.5 F 68 18 90/51 General: No apparent distress HEENTM: normcephalic, throat clear Neck:supple, trachea in good position ABD: +BS, Soft, non-tender, non-distended. Assessment: possible acid reflux 10/24/19 11:17 Plan: Advised patient to sit up at least 30 minutes after eating. Protonix to be ordered.
[2019-10-24] MEDS: NICOTINE POLACRILEX 2 MG GUM BC PRN (20:21)
[2019-10-24] MEDS: MELATONIN 5 MG TABLETS PO PRN (21:27)
[2019-10-24] MEDS: THIAMINE HCL 100 MG TABLET (FP) PO SCH (21:27)
--- NOTE | 2019-10-25 09:16 | DS ---
[facility] Rehab Discharge Summary - [facility] Rehab Discharge Summary Admission Date: 10/13/19 Discharge Date: 10/26/19 - History Present History: Alcohol dependence, Cannabis dependence, Cocaine dependence, Opioid dependence Pertinent Past History: Pt is a 39 yo M with no known PMHx presenting for detox from alcohol, also uses Marijuana and cocaine. Denies mental health issues, Said he used paxel in past. ETOH Drank 2pints of liqour Drinks 1-3 pints of liqour daily Has been drinking daily for the past 4 months Last here 09/19 also went to detox in [facility] program Has had rehab in past for 28 days about 4 months ago Never seized, never had blackouts, but gets the shakes Started to use at 13 years old THC- Uses 3-6blunts a day Started to use at 13 years old Cocaine - Snorts cocaine $20-40 a day Snorts most days Hep C- neg in past HIV- neg in past- 2 weeks ago Does not inject cocaine Benzos- xanax- lately sporadic use 7-8 sticks a week Nicotine 10 cigs/day Started to smoke at 13 Heroin Stopped 1-2 weeks ago Was snorting 2 bags per day, never injected, never overdosed Stopped for no reason, had some withdrawal symptoms Did not use any medications to help the withdrawal and has never been in a MMTP or suboxone program FHX No addiction hx No medical problems Mother, 2 sisters, 1 brother Social hx: Homeless for 4 months, unable to keep up with bills 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 Never been in [place] [facility] Has a 10 year old son - Discharge Physical Exam Vital Signs: Vital Signs Temperature 97.8 F 10/25/19 06:39 Pulse Rate 60 10/25/19 06:39 Respiratory Rate 18 10/25/19 06:39 Blood Pressure 97/66 10/25/19 06:39 O2 Sat by Pulse Oximetry (%) Pertinent Admission Physical Exam Findings: General Appearance: No Apparent Distress HEENTM: Normocephalic Respiratory: Lungs Clear Neck: supple Cardiology: S1, S2 Abdominal: +BS Musculoskeletal: full weight bearing, steady gait, full ROM Neurological: Cn 2-12 intact - Treatment Discharge Condition: Outpatient referral accepted (Medically stable for discharge. Patient will go to [facility]) Hospital Course: Patient attended meetings, had 1:1 with his counselor, was adherent to his medication regimen and treatment plan. He had no acute or urgent medical problems while in rehab. - Medication Discharge Medications: Ambulatory Orders Naloxone HCl [Narcan] 4 mg NS ASDIR PRN #1 spray 09/07/19 - Medication-Assisted Treatment (MAT) Medication-Assisted Treatment (MAT): No - Discharge Instructions Diet, activity, other medical instructions: Diet: as tolerated Activity: as tolerated Other medical instructions: Please keep aftercare referral. - Diagnosis (1) Alcohol dependence Current Visit: No Status: Chronic (2) Opioid dependence Current Visit: No Status: Chronic (3) Cannabis dependence, uncomplicated Current Visit: No Status: Chronic (4) Cocaine dependence, uncomplicated Current Visit: No Status: Chronic - Follow-up Referral Minutes to complete discharge: 20 - AMA Did Patient Leave Against Medical Advice: No
[2019-10-25] MEDS ORDERED: PANTOPRAZOLE 40 MG TABLET (FP) PO SCH (10:00)
[2019-10-25] MEDS: PRENATAL VITAMINS W/ FOLIC ACID TABLET (FP) PO SCH (10:04)
[2019-10-25] MEDS: NICOTINE 7 MG/24 HOURS TOPICAL PATCH TD SCH (11:04)
[2019-10-25] MEDS: THIAMINE HCL 100 MG TABLET (FP) PO SCH (21:41)
[2019-10-25] MEDS: MELATONIN 5 MG TABLETS PO PRN (21:41)
[2019-10-25] MEDS: NICOTINE POLACRILEX 2 MG GUM BC PRN (21:41)
[2019-10-26 06:51] VITALS: BP 103/76; PULSE 70; TEMP 97.6
== END 2019-10-26 08:35 | disposition home or self-care (01) | DRG 772 ==
LOC: YASAS 12:52 → Y3W 17:18
PROVIDERS: ADMIT Neuromusculoskeletal Medicine & OMM; ATTEND Allergy & Immunology
PROC: HZ42ZZZ Group Counseling for Substance Abuse Treatment, Cognitive-Behavioral (ICD-10-PCS; principal; 2019-10-13)
DX: F11.20 Opioid dependence, uncomplicated (principal); F10.20 Alcohol dependence, uncomplicated; F15.20 Other stimulant dependence, uncomplicated; F12.20 Cannabis dependence, uncomplicated; F13.10 Sedative, hypnotic or anxiolytic abuse, uncomplicated; F17.220 Nicotine dependence, chewing tobacco, uncomplicated; F32.9 Major depressive disorder, single episode, unspecified; J44.9 Chronic obstructive pulmonary disease, unspecified; Z59.0 Homelessness
CPT/HCPCS: 36415; 80053; 81003; 85027

== ENCOUNTER 2020-05-04 12:39 | Inpatient (IN) | payer OTHER ==
--- NOTE | 2020-05-04 16:44 | BHS.RME ---
Substance Use & Tx History - Substance Use History Alcohol Substance amount: 2pints of liquor vodka,rum Frequency of use: More than 3 times per week Date of Last Use: 05/04/20 Cocaine- Powder Substance amount: 60$ Frequency of use: More than 3 times per week Substance route: Inhalation (ex: sniffing or snorting) Date of Last Use: 05/02/20 Cannabis Substance amount: ^0$ Frequency of use: Daily Substance route: Smoking Date of Last Use: 05/04/20 - Last Treatment Date of last treatment: [facility] 12/2019 Where was last treatment: Detox Physical/Psych/Mental Status - Behavior Eye Contact: Normal - Cooperativeness Cooperativeness: Cooperative - Thinking Thought Processes: Logical Thought content: Future oriented - Physical Health Problems Is patient presently having any pain?: No Does patient presently have any injuries (include location): No Does patient currently have a fever: No CIWA Nausea/Vomitin Muscle Tremors: 3 Anxiety: 2 Agitation: 2 Paroxysmal Sweats: 1-Minimal Palms Moist Orientation: 0-Oriented Tacttile Disturbances: 1-Very Mild Itch/Numbness Auditory Disturbances: 0-None Visual Disturbances: 0-None Headache: 2-Mild CIWA-Ar Total Score: 13
--- NOTE | 2020-05-04 16:46 | HP ---
CIWA Score Nausea/Vomitin Muscle Tremors: 3 Anxiety: 2 Agitation: 2 Paroxysmal Sweats: 1-Minimal Palms Moist Orientation: 0-Oriented Tacttile Disturbances: 1-Very Mild Itch/Numbness Auditory Disturbances: 0-None Visual Disturbances: 0-None Headache: 2-Mild CIWA-Ar Total Score: 13 - Admission Criteria OASAS Guidelines: Admission for Medically Managed Detox: Requires at least one of the followin. CIWA greater than 12 2. Seizures within the past 24 hours 3. Delirium tremens within the past 24 hours 4. Hallucinations within the past 24 hours 5. Acute intervention needed for co occurring medical disorder 6. Acute intervention needed for co occurring psychiatric disorder 7. Severe withdrawal that cannot be handled at a lower level of care (continued vomiting, continued diarrhea, abnormal vital signs) requiring intravenous medication and/or fluids 8. Admitting History and Physical - Admission Chief Complaint: i need help to stop drinking alcohol History of Present Illness: this 39 years old male with alcohol dependence,cocaine and marijuana dependence seeking detox.[facility] 12/2019 [facility] syncope denied seizure longest sobriety 3 years plan for rehab after detox History Source: Patient Limitations to Obtaining History: No Limitations - Past Medical History [employer]: Yes: Syncope - Smoking History Smoking history: Current every day smoker Have you smoked in the past 12 months: Yes Aproximately how many cigarettes per day: 10 - Alcohol/Substance Use Hx Alcohol Use: Yes History of Substance Use: reports: Cocaine, Marijuana - Social History Usual Living Arrangement: Yes: Other (with room mate) Do you think of yourself as: Straight/Heterosexual ADL: Support Services Occupation: unemployed History of Recent Travel: No Other Social History: unemployrd,no legal issue,nicotine dependence Admission [facility] Chief Complaint: need help to stop srinking alcohol Allergies/Adverse Reactions: Allergies Allergy/AdvReac Type Severity Reaction Status Date / Time No Known Allergies Allergy Verified 05/04/20 16:50 History of Present Illness: this 39 years old male with alcohol dependence,cocaine and marijuana dependence seeking detox, multiple admissions in detox,last [facility] 12/2019 Patient History - Patient Medical History Hx Anemia: No Hx Asthma: No Hx Chronic Obstructive Pulmonary Disease (COPD): No Hx Cancer: No Hx Cardiac Disorders: No Hx Congestive Heart Failure: No Hx Hypertension: No Hx Hypercholesterolemia: No Hx Pacemaker: No HX Cerebrovascular Accident: No Hx Seizures: No Hx Dementia: No Hx Diabetes: No Hx Gastrointestinal Disorders: No Hx Liver Disease: No Hx Genitourinary Disorders: No Hx Sexually Transmitted Disorders: No Hx Renal Disease (ESRD): No Hx Thyroid Disease: No Hx Human Immunodeficiency Virus (HIV): No (2 mos neg) Hx Hepatitis C: No Hx Depression: Yes (anxiety,insomnia) Hx Suicide Attempt: No Hx Bipolar Disorder: No Hx Schizophrenia: No Other Medical History: no suicidal,no homicidal - Patient Surgical History Past Surgical History: No Hx Neurologic Surgery: No Hx Cataract Extraction: No Hx Cardiac Surgery: No Hx Lung Surgery: No Hx Breast Surgery: No Hx Breast Biopsy: No Hx Abdominal Surgery: No Hx Appendectomy: No Hx Cholecystectomy: No Hx Genitourinary Surgery: No Hx Section: No Hx Orthopedic Surgery: No Anesthesia Reaction: No - PPD History Previous Implant?: Yes Documented Results: Negative w/proof Date: 09/06/19 Results: Neg 0 mm PPD to be Administered?: No - Smoking Cessation Smoking history: Current every day smoker Have you smoked in the past 12 months: Yes Aproximately how many cigarettes per day: 20 Hx Chewing Tobacco Use: No Initiated information on smoking cessation: Yes 'Breaking Loose' booklet given: 05/04/20 - Substance & Tx. History Hx Alcohol Use: Yes Hx Substance Use: Yes Substance Use Type: Alcohol, Cocaine, Marijuana Hx Substance Use Treatment: Yes ([facility] 12/2019) - Substances abused Alcohol Substance route: Oral Frequency: Daily Amount used: 2 pints of liquor vodka and rum Age of first use: 13 Date of last use: 05/04/20 Cocaine Substance route: Inhalation Frequency: 3-6 times per week Amount used: 60$ Age of first use: 28 Date of last use: 05/02/20 Marijuana/Hashish Substance route: Smoking Frequency: Daily Amount used: 60$ Age of first use: 13 Date of last use: 05/04/20 Admission Physical Exam [facility] - Physical General Appearance: Yes: Moderate Distress, Tremorous, Irritable, Sweating, Anxious HEENTM: Yes: Normal ENT Inspection, JANELL, Pharynx Normal Respiratory: Yes: Lungs Clear, Normal Breath Sounds, No Respiratory Distress Neck: Yes: Within Normal Limits, Supple, Trachea in good position Breast: Yes: Within Normal Limits Cardiology: Yes: Within Normal Limits, Regular Rhythm, Regular Rate, S1, S2 Abdominal: Yes: Within Normal Limits, Normal Bowel Sounds, Non Tender, Flat, Soft Genitourinary: Yes: Within Normal Limits Back: Yes: Muscle Spasm Musculoskeletal: Yes: Back pain, Muscle Pain Extremities: Yes: Within Normal Limits, Normal Range of Motion, Tremors 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: senior risk analyst II-XII NML intact, Alert, Motor Strength 5/5 Integumentary: Yes: Dry Lymphatic: Yes: Within Normal Limits - Diagnostic (1) Alcohol dependence with withdrawal, uncomplicated Current Visit: No Status: Acute (2) Insomnia secondary to depression with anxiety Current Visit: Yes Status: Acute (3) Cannabis dependence, uncomplicated Current Visit: No Status: Chronic (4) Cocaine dependence, uncomplicated Current Visit: No Status: Chronic (5) Nicotine dependence, cigarettes, uncomplicated Current Visit: No Status: Chronic (6) Alcohol dependence with intoxication Current Visit: Yes Status: Acute Cleared for Admission S - Detox or Rehab [facility] Level of Care: Medically Managed Detox Regimen/Protocol: Librium Breathalyzer - Breathalyzer Breathalyzer: 0 Urine Drug Screen - Test Device Lot number: [id number] Expiration date: 05/31/21 - Control Is test valid?: Yes - Results Drug screen NEGATIVE: No Urine drug screen results: THC-Marijuana, ANYA-Cocaine, MOP-Opiates Inpatient Rehab Admission - Rehab Decision to Admit Inpatient rehab admission?: No
[2020-05-04 16:58] VITALS: BMI 21.9
[2020-05-04] MEDS ORDERED: MAG HYDROX/AL HYDROX/SIMETH 30 ML UNIT-DOSE CUP PO PRN (17:05)
[2020-05-04] MEDS ORDERED: chlordiazePOXIDE HCL 25 MG CAPSULE PO PRN (17:05)
[2020-05-04] MEDS ORDERED: METHOCARBAMOL 500 MG TABLET PO PRN (17:05)
[2020-05-04] MEDS ORDERED: ONDANSETRON *ODT* 4 MG TABLET SL ONE (17:05)
[2020-05-04] MEDS ORDERED: ACETAMINOPHEN 325 MG TABLET (FP) PO PRN ×2 (17:05)
[2020-05-04] MEDS ORDERED: NICOTINE POLACRILEX 2 MG GUM BUC PRN (17:05)
[2020-05-04] MEDS ORDERED: MENTHOL/PHENOL 1 EACH UD MM PRN (17:05)
[2020-05-04] MEDS ORDERED: BISMUTH SUBSALICYLATE 524 MG/30 ML UD PO PRN (17:05)
[2020-05-04] MEDS ORDERED: MAGNESIUM HYDROX 2400MG/30ML ORAL SUSPENSION 30 ML CUP PO PRN (17:05)
[2020-05-04] MEDS ORDERED: IBUPROFEN 400 MG TABLET (FP) PO PRN (17:05)
[2020-05-04] MEDS ORDERED: MAGNESIUM CITRATE 300 ML BOTTLE PO PRN (17:05)
[2020-05-04] MEDS: hydrOXYzine PAMOATE 25 MG CAPSULE (FP) PO SCH ×2 (17:47→22:50)
[2020-05-04] MEDS ORDERED: THIAMINE HCL 100 MG TABLET (FP) PO SCH (22:00)
[2020-05-04] MEDS ORDERED: MELATONIN 5 MG TABLETS PO SCH (22:00)
[2020-05-04] MEDS: chlordiazePOXIDE HCL 25 MG CAPSULE PO SCH (22:50)
[2020-05-05 07:00] VITALS: BP 100/63; PULSE 54; TEMP 97.7
[2020-05-05] MEDS: chlordiazePOXIDE HCL 25 MG CAPSULE PO SCH (07:10)
[2020-05-05] MEDS: hydrOXYzine PAMOATE 25 MG CAPSULE (FP) PO SCH (07:11)
[2020-05-05 09:22] LABS: HEMATOCRIT 39.6 % (35.4-49); HEMOGLOBIN 13.2 GM/dL (11.7-16.9); MCH 32.4 pg (25.7-33.7); MCHC 33.4 g/dl (32.0-35.9); MEAN PLT VOLUME 8.5 fl (7.5-11.1); PLATELET COUNT 221 K/MM3 (134-434); RBC 4.09 M/mm3 (4.00-5.60); RDW 14.6 % (11.9-15.9); WHITE BLOOD COUNT 3.6 K/mm3 (4.0-10.0)
[2020-05-05 09:34] LABS: ALBUMIN 3.5 g/dl (3.4-5.0); BILIRUBIN,TOTAL 1.1 mg/dL (0.2-1); CALCIUM 8.7 mg/dL (8.5-10.1); CREATININE 1.1 mg/dL (0.55-1.3); POTASSIUM 3.8 mmol/L (3.5-5.1); TOT PROT 6.4 g/dl (6.4-8.2)
[2020-05-05] MEDS ORDERED: PRENATAL VITAMINS W/ FOLIC ACID TABLET (FP) PO SCH (10:00)
[2020-05-05] MEDS ORDERED: NICOTINE 21 MG/24 HOURS TOPICAL PATCH TD SCH (10:00)
--- NOTE | 2020-05-05 10:12 | PN ---
[facility] CIWA - CIWA Score Nausea/Vomitin-No Nausea/No Vomiting Muscle Tremors: 2 Anxiety: 3 Agitation: 3 Paroxysmal Sweats: 2 Orientation: 0-Oriented Tacttile Disturbances: 0-None Auditory Disturbances: 0-None Visual Disturbances: 0-None Headache: 0-None Present CIWA-Ar Total Score: 10 [facility] Progress Note (SOAP) Subjective: Complains of sweats, irritability and anxiety. Objective: 05/05/20 10:08 Vital Signs 05/05/20 05/05/20 03:30 06:16 Temperature 97.7 F Pulse Rate 54 L Respiratory 16 16 Rate Blood Pressure 100/63 Laboratory Last Values WBC 3.6 K/mm3 (4.0-10.0) L 05/05/20 07:35 RBC 4.09 M/mm3 (4.00-5.60) 05/05/20 07:35 Hgb 13.2 GM/dL (11.7-16.9) 05/05/20 07:35 Hct 39.6 % (35.4-49) 05/05/20 07:35 MCV 97.0 fl (80-96) H 05/05/20 07:35 MCH 32.4 pg (25.7-33.7) 05/05/20 07:35 MCHC 33.4 g/dl (32.0-35.9) 05/05/20 07:35 RDW 14.6 % (11.9-15.9) 05/05/20 07:35 Plt Count 221 K/MM3 (134-434) 05/05/20 07:35 MPV 8.5 fl (7.5-11.1) 05/05/20 07:35 Sodium 146 mmol/L (136-145) H 05/05/20 07:35 Potassium 3.8 mmol/L (3.5-5.1) 05/05/20 07:35 Chloride 112 mmol/L (98-107) H 05/05/20 07:35 Carbon Dioxide 26 mmol/L (21-32) 05/05/20 07:35 Anion Gap 8 MMOL/L (8-16) 05/05/20 07:35 BUN 11.0 mg/dL (7-18) 05/05/20 07:35 Creatinine 1.1 mg/dL (0.55-1.3) 05/05/20 07:35 Est GFR (CKD-EPI)AfAm 98.18 05/05/20 07:35 Est GFR (CKD-EPI)NonAf 84.71 05/05/20 07:35 Random Glucose 83 mg/dL (74-106) 05/05/20 07:35 Calcium 8.7 mg/dL (8.5-10.1) 05/05/20 07:35 Total Bilirubin 1.1 mg/dL (0.2-1) H 05/05/20 07:35 AST 14 U/L (15-37) L 05/05/20 07:35 ALT 20 U/L (13-61) 05/05/20 07:35 Alkaline Phosphatase 40 U/L (45-117) L 05/05/20 07:35 Total Protein 6.4 g/dl (6.4-8.2) 05/05/20 07:35 Albumin 3.5 g/dl (3.4-5.0) 05/05/20 07:35 Syphilis Serology Non-reactive (NONREACTIVE) 05/05/20 07:35 Labs reviewed, COVID 19 testing pending. Assessment: 05/05/20 10:09 Alert and oriented x3, in no acute respiratory distress. Very irritable and cursing at staff. Demanding to leave. Full ROM, Walking on unit with steady gait. Plan: Discharged AMA.
--- NOTE | 2020-05-05 10:17 | DS ---
[facility] Detox Discharge Summary Admission Date: 05/04/20 Discharge Date: 05/05/20 - History Present History: Alcohol Dependence Additional Comments: Pt very irritable, cursing at staff, demanding to be discharged. - Physical Exam Results Vital Signs: Vital Signs Temperature 97.7 F 05/05/20 06:16 Pulse Rate 54 L 05/05/20 06:16 Respiratory Rate 16 05/05/20 06:16 Blood Pressure 100/63 05/05/20 06:16 O2 Sat by Pulse Oximetry (%) 97 05/04/20 22:46 Vital Signs 05/05/20 05/05/20 03:30 06:16 Temperature 97.7 F Pulse Rate 54 L Respiratory 16 16 Rate Blood Pressure 100/63 Laboratory Last Values WBC 3.6 K/mm3 (4.0-10.0) L 05/05/20 07:35 RBC 4.09 M/mm3 (4.00-5.60) 05/05/20 07:35 Hgb 13.2 GM/dL (11.7-16.9) 05/05/20 07:35 Hct 39.6 % (35.4-49) 05/05/20 07:35 MCV 97.0 fl (80-96) H 05/05/20 07:35 MCH 32.4 pg (25.7-33.7) 05/05/20 07:35 MCHC 33.4 g/dl (32.0-35.9) 05/05/20 07:35 RDW 14.6 % (11.9-15.9) 05/05/20 07:35 Plt Count 221 K/MM3 (134-434) 05/05/20 07:35 MPV 8.5 fl (7.5-11.1) 05/05/20 07:35 Sodium 146 mmol/L (136-145) H 05/05/20 07:35 Potassium 3.8 mmol/L (3.5-5.1) 05/05/20 07:35 Chloride 112 mmol/L (98-107) H 05/05/20 07:35 Carbon Dioxide 26 mmol/L (21-32) 05/05/20 07:35 Anion Gap 8 MMOL/L (8-16) 05/05/20 07:35 BUN 11.0 mg/dL (7-18) 05/05/20 07:35 Creatinine 1.1 mg/dL (0.55-1.3) 05/05/20 07:35 Est GFR (CKD-EPI)AfAm 98.18 05/05/20 07:35 Est GFR (CKD-EPI)NonAf 84.71 05/05/20 07:35 Random Glucose 83 mg/dL (74-106) 05/05/20 07:35 Calcium 8.7 mg/dL (8.5-10.1) 05/05/20 07:35 Total Bilirubin 1.1 mg/dL (0.2-1) H 05/05/20 07:35 AST 14 U/L (15-37) L 05/05/20 07:35 ALT 20 U/L (13-61) 05/05/20 07:35 Alkaline Phosphatase 40 U/L (45-117) L 05/05/20 07:35 Total Protein 6.4 g/dl (6.4-8.2) 05/05/20 07:35 Albumin 3.5 g/dl (3.4-5.0) 05/05/20 07:35 Syphilis Serology Non-reactive (NONREACTIVE) 05/05/20 07:35 Labs reviewed. Pertinent Admission Physical Exam Findings: withdrawal symptoms - Medication Discharge Medications: Ambulatory Orders Naloxone HCl [Narcan] 4 mg NS ASDIR PRN #1 spray 09/07/19 - Diagnosis (1) Alcohol dependence with withdrawal, uncomplicated Status: Acute - AMA Did Patient Leave Against Medical Advice: Yes (left AMA.)
[2020-05-06] MEDS ORDERED: chlordiazePOXIDE HCL 25 MG CAPSULE PO SCH (05:00)
[2020-05-07] MEDS ORDERED: chlordiazePOXIDE HCL 10 MG CAPSULE PO PRN
[2020-05-07] MEDS ORDERED: chlordiazePOXIDE HCL 10 MG CAPSULE PO SCH (05:00)
[2020-05-08] MEDS ORDERED: chlordiazePOXIDE HCL 10 MG CAPSULE PO SCH (05:00)
[2020-05-09] MEDS ORDERED: chlordiazePOXIDE HCL 10 MG CAPSULE PO ONE (05:00)
== END 2020-05-05 09:15 | disposition left against medical advice (07) | DRG 770 ==
LOC: YASAS 12:39 → Y5N DETOX 17:15
PROVIDERS: ADMIT Allergy & Immunology; ATTEND Allergy & Immunology
PROC: HZ2ZZZZ Detoxification Services for Substance Abuse Treatment (ICD-10-PCS; principal; 2020-05-04)
DX: F10.230 Alcohol dependence with withdrawal, uncomplicated (principal); F14.20 Cocaine dependence, uncomplicated; F12.20 Cannabis dependence, uncomplicated; F17.210 Nicotine dependence, cigarettes, uncomplicated; F51.05 Insomnia due to other mental disorder; F41.8 Other specified anxiety disorders; F32.9 Major depressive disorder, single episode, unspecified
CPT/HCPCS: 36415; 80053; 85027; 86780; 87389; U0003

== ENCOUNTER 2020-06-02 08:30 | Inpatient (IN) | payer OTHER ==
--- NOTE | 2020-06-02 10:04 | BHS.RME ---
Substance Use & Tx History - Substance Use History Alcohol Substance amount: 3 pints of vodka/6 packs of 12 ozs of beer Frequency of use: Daily Substance route: Oral Date of Last Use: 06/01/20 Xanax Substance amount: 4 mgs to 6 mgs Frequency of use: Daily Substance route: Oral Date of Last Use: 05/31/20 Cocaine-Crack Substance amount: 100$ Frequency of use: Daily Substance route: Smoking Date of Last Use: 05/31/20 Marijuana/Hashish Substance amount: 80$ Frequency of use: Daily Substance route: Smoking Date of Last Use: 06/01/20 - Last Treatment Date of last treatment: [facility] 05/04/20 to 05/05/20 not completed Where was last treatment: Detox Physical/Psych/Mental Status - Behavior Eye Contact: Normal - Cooperativeness Cooperativeness: Cooperative - Thinking Thought Processes: Logical Thought content: Future oriented - Physical Health Problems Is patient presently having any pain?: No Does patient presently have any injuries (include location): No Does patient currently have a fever: No CIWA Nausea/Vomitin Muscle Tremors: 3 Anxiety: 3 Agitation: 3 Paroxysmal Sweats: 1-Minimal Palms Moist Orientation: 0-Oriented Tacttile Disturbances: 0-None Auditory Disturbances: 0-None Visual Disturbances: 0-None Headache: 2-Mild CIWA-Ar Total Score: 14
--- NOTE | 2020-06-02 10:12 | HP ---
CIWA Score Nausea/Vomitin Muscle Tremors: 3 Anxiety: 3 Agitation: 3 Paroxysmal Sweats: 1-Minimal Palms Moist Orientation: 0-Oriented Tacttile Disturbances: 0-None Auditory Disturbances: 0-None Visual Disturbances: 0-None Headache: 2-Mild CIWA-Ar Total Score: 14 - Admission Criteria OASAS Guidelines: Admission for Medically Managed Detox: Requires at least one of the followin. CIWA greater than 12 2. Seizures within the past 24 hours 3. Delirium tremens within the past 24 hours 4. Hallucinations within the past 24 hours 5. Acute intervention needed for co occurring medical disorder 6. Acute intervention needed for co occurring psychiatric disorder 7. Severe withdrawal that cannot be handled at a lower level of care (continued vomiting, continued diarrhea, abnormal vital signs) requiring intravenous medication and/or fluids 8. 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 Psych: Yes: Anxiety, Depression, Other (insomnia) - Past Surgical History Past Surgical History: Yes: None - Smoking History Smoking history: Current every day smoker Have you smoked in the past 12 months: Yes Aproximately how many cigarettes per day: 20 - Alcohol/Substance Use Hx Alcohol Use: Yes History of Substance Use: reports: Cocaine, Marijuana, Tranquilizers Date of Last Use: 06/02/20 - Social History Usual Living Arrangement: Yes: Other (uncle) Do you think of yourself as: Straight/Heterosexual ADL: Support Services Occupation: unemployed History of Recent Travel: No Other Social History: unemployed,nicotine dependence,no legal issue Admission ROS S - [facility] Chief Complaint: i need help to stop drinking alcohol,cocaine,xanax,marijuana Allergies/Adverse Reactions: Allergies Allergy/AdvReac Type Severity Reaction Status Date / Time No Known Allergies Allergy Verified 06/02/20 10:33 History of Present Illness: this 39 years old male with alcohol,cocaine,xanax and marijuana dependence seeking detox,withdrawal symptom, multiple admissions in detox,last [facility] 05/04/20 to 05/05/20 not completed syncope denied seizure anxiety,depression,insomnia longest sobriety 3 years unemployed,no legal issue,positive eye manager molecular plan for rehab after detox Exam Limitations: No Limitations - Ebola screening Have you traveled outside of the country in the last 21 days: No Have you had contact with anyone from an Ebola affected area: No Have you been sick,other than usual withdrawal symptoms: No Do you have a fever: No - Review of Systems Constitutional: Loss of Appetite, Malaise, Night Sweats, Changes in sleep, Weakness EENT: reports: Tearing, Nose Congestion Respiratory: reports: No Symptoms reported Cardiac: reports: No Symptoms Reported GI: reports: Nausea, Poor Appetite, Vomiting, Abdominal cramping : reports: No Symptoms Reported Musculoskeletal: reports: Back Pain, Muscle Pain Integumentary: reports: Dryness Neuro: reports: Headache, Tremors Endocrine: reports: No Symptoms Reported Hematology: reports: No Symptoms Reported Psychiatric: reports: No Sypmtoms Reported, Judgement Intact, Mood/Affect Appropiate, Orientated x3, Anxious, Depressed Other Systems: Reviewed and Negative Patient History - Patient Medical History Hx Anemia: No Hx Asthma: No Hx Chronic Obstructive Pulmonary Disease (COPD): No Hx Cancer: No Hx Cardiac Disorders: No Hx Congestive Heart Failure: No Hx Hypertension: No Hx Hypercholesterolemia: No Hx Pacemaker: No HX Cerebrovascular Accident: No Hx Seizures: No Hx Dementia: No Hx Diabetes: No Hx Gastrointestinal Disorders: No Hx Liver Disease: No Hx Genitourinary Disorders: No Hx Sexually Transmitted Disorders: No Hx Renal Disease (ESRD): No Hx Thyroid Disease: No Hx Human Immunodeficiency Virus (HIV): No (05/2020 megative) Hx Hepatitis C: No Hx Depression: Yes (anxiety,insomnia) Hx Suicide Attempt: No Hx Bipolar Disorder: No Hx Schizophrenia: No Other Medical History: no suicidal,no homicidal - Patient Surgical History Past Surgical History: No Hx Neurologic Surgery: No Hx Cataract Extraction: No Hx Cardiac Surgery: No Hx Lung Surgery: No Hx Breast Surgery: No Hx Breast Biopsy: No Hx Abdominal Surgery: No Hx Appendectomy: No Hx Cholecystectomy: No Hx Genitourinary Surgery: No Hx Section: No Hx Orthopedic Surgery: No Anesthesia Reaction: No - PPD History Previous Implant?: Yes Documented Results: Negative w/proof Implanted On Prior [facility] Admission?: Yes Date: 09/06/19 Results: Neg 0 mm PPD to be Administered?: No - Smoking Cessation Smoking history: Current every day smoker Have you smoked in the past 12 months: Yes Aproximately how many cigarettes per day: 20 Hx Chewing Tobacco Use: No Initiated information on smoking cessation: Yes 'Breaking Loose' booklet given: 06/02/20 - Substance & Tx. History Hx Alcohol Use: Yes Hx Substance Use: Yes Substance Use Type: Alcohol, Cocaine, Marijuana, Tranquilizers Hx Substance Use Treatment: Yes ([facility] 05/04/20 to 05/05/20 not completed) - Substances abused Alcohol Substance route: Oral Frequency: Daily Amount used: 3pints of vodka/6 packs of 12 ozs of beer Age of first use: 13 Date of last use: 06/01/20 Alprazolam (Xanax) Substance route: Oral Frequency: Daily Amount used: 4 mgs to 6 mgs Age of first use: 36 Date of last use: 05/31/20 Crack Frequency: Daily Amount used: 100$ Age of first use: 28 Date of last use: 05/31/20 Marijuana/Hashish Substance route: Smoking Frequency: Daily Amount used: 80$ Age of first use: 13 Date of last use: 06/01/20 Admission Physical Exam S - Vital Signs Vital Signs: t98.1,p76,bp 120/77,r 20 - Physical General Appearance: Yes: Moderate Distress, Tremorous, Sweating, Anxious HEENTM: Yes: Within Normal Limits, Normal ENT Inspection, JANELL Respiratory: Yes: Lungs Clear Neck: Yes: Within Normal Limits, Supple, Trachea in good position Breast: Yes: Within Normal Limits Cardiology: Yes: Within Normal Limits, Regular Rhythm, Regular Rate, S1, S2 Abdominal: Yes: Within Normal Limits, Normal Bowel Sounds, Non Tender, Flat, Soft Genitourinary: Yes: Within Normal Limits Back: Yes: Muscle Spasm Musculoskeletal: Yes: Back pain, Muscle Pain Extremities: Yes: Tremors 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: 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 NML intact, Fully Oriented, Alert, Motor Strength 5/5 Integumentary: Yes: Dry Lymphatic: Yes: Within Normal Limits - Diagnostic (1) Alcohol dependence with withdrawal, uncomplicated Current Visit: No Status: Acute (2) Uncomplicated sedative, hypnotic or anxiolytic withdrawal Current Visit: Yes Status: Acute (3) Cannabis dependence, uncomplicated Current Visit: No Status: Acute (4) Cocaine dependence, uncomplicated Current Visit: No Status: Acute (5) Insomnia secondary to depression with anxiety Current Visit: No Status: Acute Cleared for Admission [facility] - Detox or Rehab [facility] Level of Care: Medically Managed Detox Regimen/Protocol: Librium Screened but not Admitted - Documentation of Visit Screened but not Admitted: No Breathalyzer - Breathalyzer Breathalyzer: 0 Urine Drug Screen - Test Device Lot number: [id number] Expiration date: 05/31/21 - Control Is test valid?: Yes - Results Drug screen NEGATIVE: No Urine drug screen results: THC-Marijuana, ANYA-Cocaine, MOP-Opiates Inpatient Rehab Admission - Rehab Decision to Admit Inpatient rehab admission?: No
[2020-06-02] MEDS ORDERED: MENTHOL/PHENOL 1 EACH UD MM PRN (10:31)
[2020-06-02] MEDS ORDERED: METHOCARBAMOL 500 MG TABLET PO PRN (10:31)
[2020-06-02] MEDS ORDERED: IBUPROFEN 400 MG TABLET (FP) PO PRN (10:31)
[2020-06-02] MEDS ORDERED: BISMUTH SUBSALICYLATE 524 MG/30 ML UD PO PRN (10:31)
[2020-06-02] MEDS ORDERED: MAGNESIUM HYDROX 2400MG/30ML ORAL SUSPENSION 30 ML CUP PO PRN (10:31)
[2020-06-02] MEDS ORDERED: NICOTINE POLACRILEX 2 MG GUM BUC PRN (10:31)
[2020-06-02] MEDS ORDERED: ACETAMINOPHEN 325 MG TABLET (FP) PO PRN ×2 (10:31)
[2020-06-02] MEDS ORDERED: MAGNESIUM CITRATE 300 ML BOTTLE PO PRN (10:31)
[2020-06-02] MEDS ORDERED: ONDANSETRON *ODT* 4 MG TABLET SL ONE (10:31)
[2020-06-02] MEDS ORDERED: MAG HYDROX/AL HYDROX/SIMETH 30 ML UNIT-DOSE CUP PO PRN (10:31)
[2020-06-02] MEDS ORDERED: chlordiazePOXIDE HCL 25 MG CAPSULE PO PRN (10:31)
[2020-06-02 11:01] VITALS: BMI 22.5
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
[2020-06-02] MEDS ORDERED: MELATONIN 5 MG TABLETS PO PRN (13:32)
[2020-06-02] MEDS: hydrOXYzine PAMOATE 25 MG CAPSULE (FP) PO SCH ×2 (14:36→17:49)
[2020-06-02] MEDS: chlordiazePOXIDE HCL 25 MG CAPSULE PO SCH ×2 (17:50→22:28)
[2020-06-02] MEDS ORDERED: MELATONIN 5 MG TABLETS PO SCH (22:00)
[2020-06-02] MEDS: THIAMINE HCL 100 MG TABLET (FP) PO SCH (22:28)
[2020-06-03] MEDS: hydrOXYzine PAMOATE 25 MG CAPSULE (FP) PO SCH ×2 (00:28→05:24)
[2020-06-03] MEDS: chlordiazePOXIDE HCL 25 MG CAPSULE PO SCH ×4 (05:24→22:02)
[2020-06-03] MEDS ORDERED: hydrOXYzine PAMOATE 25 MG CAPSULE (FP) PO PRN (08:34)
[2020-06-03] MEDS: PRENATAL VITAMINS W/ FOLIC ACID TABLET (FP) PO SCH (10:16)
[2020-06-03] MEDS: NICOTINE POLACRILEX 4 MG GUM BUC PRN ×4 (10:16→21:05)
[2020-06-03] MEDS: NICOTINE 21 MG/24 HOURS TOPICAL PATCH TD SCH (10:16)
[2020-06-03 11:02] LABS: HEMATOCRIT 40.8 % (35.4-49); HEMOGLOBIN 13.5 GM/dL (11.7-16.9); MCH 31.9 pg (25.7-33.7); MCHC 33.1 g/dl (32.0-35.9); MEAN CELL VOLUME 96.3 fl (80-96); MEAN PLT VOLUME 8.7 fl (7.5-11.1); PLATELET COUNT 223 K/MM3 (134-434); RBC 4.24 M/mm3 (4.00-5.60); RDW 14.1 % (11.9-15.9); WHITE BLOOD COUNT 4.3 K/mm3 (4.0-10.0)
--- NOTE | 2020-06-03 11:04 | PN ---
S CIWA - CIWA Score Nausea/Vomitin Muscle Tremors: 2 Anxiety: 2 Agitation: 2 Paroxysmal Sweats: No Perspiration Orientation: 0-Oriented Tacttile Disturbances: 1-Very Mild Itch/Numbness Auditory Disturbances: 0-None Visual Disturbances: 0-None Headache: 1-Very Mild CIWA-Ar Total Score: 10 S Progress Note (SOAP) Subjective: alert,irritable,anxious,interrupted sleep,tremor,aching pain in the body and back Objective: 06/03/20 11:03 Vital Signs Temperature 97.5 F L 06/03/20 08:36 Pulse Rate 67 06/03/20 08:36 Respiratory Rate 16 06/03/20 08:36 Blood Pressure 112/56 L 06/03/20 08:36 O2 Sat by Pulse Oximetry (%) 99 06/03/20 05:19 labs pending Assessment: 06/03/20 11:03 withdrawal symptom Plan: continue detox librium regimen,encourage oral fluid,ensure plus 120 mls po bid
[2020-06-03 11:16] LABS: ALBUMIN 3.5 g/dl (3.4-5.0); BILIRUBIN,TOTAL 0.6 mg/dL (0.2-1); BLOOD UREA NITROGEN 14.7 mg/dL (7-18); CALCIUM 8.8 mg/dL (8.5-10.1); CREATININE 0.9 mg/dL (0.55-1.3); POTASSIUM 4.3 mmol/L (3.5-5.1); TOT PROT 6.7 g/dl (6.4-8.2)
[2020-06-03] MEDS: THIAMINE HCL 100 MG TABLET (FP) PO SCH (22:02)
[2020-06-04] MEDS: chlordiazePOXIDE HCL 25 MG CAPSULE PO SCH ×4 (05:27→22:04)
[2020-06-04] MEDS: NICOTINE POLACRILEX 4 MG GUM BUC PRN ×2 (08:31→19:25)
--- NOTE | 2020-06-04 09:09 | PN ---
[facility] Progress Note Note: Patient reports sleeping poorly despite taking Melatonin. He said that he tried different medications in the past including Trazadone, Ambien without much improvement. He requests Seroquel to which he had a good response. Will order Seroquel 100 mg/hs
[2020-06-04] MEDS: NICOTINE 21 MG/24 HOURS TOPICAL PATCH TD SCH (10:07)
[2020-06-04] MEDS: PRENATAL VITAMINS W/ FOLIC ACID TABLET (FP) PO SCH (10:07)
--- NOTE | 2020-06-04 11:03 | PN ---
S CIWA - CIWA Score Nausea/Vomitin-Mild Nausea/No Vomiting Muscle Tremors: 2 Anxiety: 2 Agitation: 1-Slight > Activity Paroxysmal Sweats: No Perspiration Orientation: 0-Oriented Tacttile Disturbances: 0-None Auditory Disturbances: 0-None Visual Disturbances: 0-None Headache: 1-Very Mild CIWA-Ar Total Score: 7 S Progress Note (SOAP) Subjective: alert,irritable,anxious,interrupted sleep,aching pain body and back Objective: 06/04/20 11:01 Vital Signs Temperature 97.5 F L 06/04/20 08:56 Pulse Rate 81 06/04/20 08:56 Respiratory Rate 19 06/04/20 08:56 Blood Pressure 116/78 06/04/20 08:56 O2 Sat by Pulse Oximetry (%) 98 06/04/20 05:22 Assessment: 06/04/20 11:01 withdrawal symptom Plan: continue detox librium regimen,Dr Conklin evaluation appreciated,patient also requested for hiv test
[2020-06-04] MEDS: QUEtiapine FUMARATE 100 MG TABLET (FP) PO SCH (22:04)
[2020-06-04] MEDS: THIAMINE HCL 100 MG TABLET (FP) PO SCH (22:04)
[2020-06-05] MEDS ORDERED: chlordiazePOXIDE HCL 10 MG CAPSULE PO PRN
[2020-06-05] MEDS: chlordiazePOXIDE HCL 10 MG CAPSULE PO SCH ×4 (05:29→22:00)
[2020-06-05] MEDS: NICOTINE POLACRILEX 4 MG GUM BUC PRN ×3 (09:28→19:39)
[2020-06-05] MEDS: NICOTINE 21 MG/24 HOURS TOPICAL PATCH TD SCH (11:25)
[2020-06-05] MEDS: PRENATAL VITAMINS W/ FOLIC ACID TABLET (FP) PO SCH (11:26)
--- NOTE | 2020-06-05 11:59 | PN ---
[facility] CIWA - CIWA Score Nausea/Vomitin-Mild Nausea/No Vomiting Muscle Tremors: 2 Anxiety: 2 Agitation: 1-Slight > Activity Paroxysmal Sweats: No Perspiration Orientation: 0-Oriented Tacttile Disturbances: 0-None Auditory Disturbances: 0-None Visual Disturbances: 0-None Headache: 1-Very Mild CIWA-Ar Total Score: 7 S Progress Note (SOAP) Subjective: alert,irritable,anxious,interrupted sleep,aching pain Objective: 06/05/20 11:57 Vital Signs Temperature 97.3 F L 06/05/20 05:24 Pulse Rate 66 06/05/20 05:24 Respiratory Rate 20 06/05/20 05:24 Blood Pressure 107/64 06/05/20 05:24 O2 Sat by Pulse Oximetry (%) 99 06/05/20 05:24 Laboratory Last Values WBC 4.3 K/mm3 (4.0-10.0) 06/03/20 08:05 RBC 4.24 M/mm3 (4.00-5.60) 06/03/20 08:05 Hgb 13.5 GM/dL (11.7-16.9) 06/03/20 08:05 Hct 40.8 % (35.4-49) 06/03/20 08:05 MCV 96.3 fl (80-96) H 06/03/20 08:05 MCH 31.9 pg (25.7-33.7) 06/03/20 08:05 MCHC 33.1 g/dl (32.0-35.9) 06/03/20 08:05 RDW 14.1 % (11.9-15.9) 06/03/20 08:05 Plt Count 223 K/MM3 (134-434) 06/03/20 08:05 MPV 8.7 fl (7.5-11.1) 06/03/20 08:05 Sodium 144 mmol/L (136-145) 06/03/20 08:05 Potassium 4.3 mmol/L (3.5-5.1) 06/03/20 08:05 Chloride 111 mmol/L (98-107) H 06/03/20 08:05 Carbon Dioxide 28 mmol/L (21-32) 06/03/20 08:05 Anion Gap 4 MMOL/L (8-16) L 06/03/20 08:05 BUN 14.7 mg/dL (7-18) 06/03/20 08:05 Creatinine 0.9 mg/dL (0.55-1.3) 06/03/20 08:05 Est GFR (CKD-EPI)AfAm 125.13 06/03/20 08:05 Est GFR (CKD-EPI)NonAf 107.97 06/03/20 08:05 Random Glucose 93 mg/dL (74-106) 06/03/20 08:05 Calcium 8.8 mg/dL (8.5-10.1) 06/03/20 08:05 Total Bilirubin 0.6 mg/dL (0.2-1) 06/03/20 08:05 AST 31 U/L (15-37) 06/03/20 08:05 ALT 42 U/L (13-61) 06/03/20 08:05 Alkaline Phosphatase 50 U/L (45-117) 06/03/20 08:05 Total Protein 6.7 g/dl (6.4-8.2) 06/03/20 08:05 Albumin 3.5 g/dl (3.4-5.0) 06/03/20 08:05 Syphilis Serology Non-reactive (NONREACTIVE) 06/03/20 08:05 COVID-19 (XIMENA) Not detected (Not Detected) 06/02/20 11:20 HIV Ag/Ab Combo Qual Negative (NEGATIVE) 06/04/20 09:00 Assessment: 06/05/20 11:57 withdrawal symptom Plan: withdrawal symptom,librium regimen,discharge in am
[2020-06-05] MEDS: QUEtiapine FUMARATE 100 MG TABLET (FP) PO SCH (21:29)
[2020-06-05] MEDS: THIAMINE HCL 100 MG TABLET (FP) PO SCH (21:30)
[2020-06-06] MEDS ORDERED: chlordiazePOXIDE HCL 10 MG CAPSULE PO SCH (05:00)
[2020-06-06 06:13] VITALS: BP 107/58; PULSE 61; TEMP 97.1
[2020-06-06] MEDS: NICOTINE POLACRILEX 4 MG GUM BUC PRN (07:22)
--- NOTE | 2020-06-06 11:45 | PN ---
[facility] CIWA - CIWA Score Nausea/Vomitin-No Nausea/No Vomiting Muscle Tremors: None Anxiety: 1-Mildly Anxious Agitation: 0-Normal Activity Paroxysmal Sweats: No Perspiration Orientation: 0-Oriented Tacttile Disturbances: 0-None Auditory Disturbances: 0-None Visual Disturbances: 0-None Headache: 0-None Present CIWA-Ar Total Score: 1 [facility] Progress Note (SOAP) Subjective: alert,no complaint Objective: 06/06/20 11:43 Vital Signs Temperature 97.1 F L 06/06/20 05:11 Pulse Rate 61 06/06/20 05:11 Respiratory Rate 20 06/06/20 05:11 Blood Pressure 107/58 L 06/06/20 05:11 O2 Sat by Pulse Oximetry (%) 100 06/06/20 05:11 Assessment: 06/06/20 11:43 no withdrawal symptom Plan: stable for discharge today,follow up with after care program [facility] as arrangement
--- NOTE | 2020-06-06 11:50 | DS ---
[facility] Detox Discharge Summary Admission Date: 06/02/20 - History Present History: Alcohol Dependence, Cannabis Dependence, Cocaine Dependence, Sedative Dependence Additional Comments: alert,oriented x 3 ambulation on the unit lung clear on auscultation bilaterally abdomen soft,no distension,no pain,no tenderness no swelling of legs stable for discharge today,no withdrawal symptom [facility]h today, total time spending on discharge 35 minutes Pertinent Past History: depression nicotine dependence - Physical Exam Results Vital Signs: Vital Signs Temperature 97.1 F L 06/06/20 05:11 Pulse Rate 61 06/06/20 05:11 Respiratory Rate 20 06/06/20 05:11 Blood Pressure 107/58 L 06/06/20 05:11 O2 Sat by Pulse Oximetry (%) 100 06/06/20 05:11 Pertinent Admission Physical Exam Findings: withdrawal signs and symptom Laboratory Last Values WBC 4.3 K/mm3 (4.0-10.0) 06/03/20 08:05 RBC 4.24 M/mm3 (4.00-5.60) 06/03/20 08:05 Hgb 13.5 GM/dL (11.7-16.9) 06/03/20 08:05 Hct 40.8 % (35.4-49) 06/03/20 08:05 MCV 96.3 fl (80-96) H 06/03/20 08:05 MCH 31.9 pg (25.7-33.7) 06/03/20 08:05 MCHC 33.1 g/dl (32.0-35.9) 06/03/20 08:05 RDW 14.1 % (11.9-15.9) 06/03/20 08:05 Plt Count 223 K/MM3 (134-434) 06/03/20 08:05 MPV 8.7 fl (7.5-11.1) 06/03/20 08:05 Sodium 144 mmol/L (136-145) 06/03/20 08:05 Potassium 4.3 mmol/L (3.5-5.1) 06/03/20 08:05 Chloride 111 mmol/L (98-107) H 06/03/20 08:05 Carbon Dioxide 28 mmol/L (21-32) 06/03/20 08:05 Anion Gap 4 MMOL/L (8-16) L 06/03/20 08:05 BUN 14.7 mg/dL (7-18) 06/03/20 08:05 Creatinine 0.9 mg/dL (0.55-1.3) 06/03/20 08:05 Est GFR (CKD-EPI)AfAm 125.13 06/03/20 08:05 Est GFR (CKD-EPI)NonAf 107.97 06/03/20 08:05 Random Glucose 93 mg/dL (74-106) 06/03/20 08:05 Calcium 8.8 mg/dL (8.5-10.1) 06/03/20 08:05 Total Bilirubin 0.6 mg/dL (0.2-1) 06/03/20 08:05 AST 31 U/L (15-37) 06/03/20 08:05 ALT 42 U/L (13-61) 06/03/20 08:05 Alkaline Phosphatase 50 U/L (45-117) 06/03/20 08:05 Total Protein 6.7 g/dl (6.4-8.2) 06/03/20 08:05 Albumin 3.5 g/dl (3.4-5.0) 06/03/20 08:05 Syphilis Serology Non-reactive (NONREACTIVE) 06/03/20 08:05 COVID-19 (XIMENA) Not detected (Not Detected) 06/02/20 11:20 HIV Ag/Ab Combo Qual Negative (NEGATIVE) 06/04/20 09:00 Vital Signs Temperature 97.1 F L 06/06/20 05:11 Pulse Rate 61 06/06/20 05:11 Respiratory Rate 20 06/06/20 05:11 Blood Pressure 107/58 L 06/06/20 05:11 O2 Sat by Pulse Oximetry (%) 100 06/06/20 05:11 - Treatment Hospital Course: Detox Protocol Followed, Detoxed Safely, Responded well, Discharged Condition Good, Rehab Referral Accepted Patient has Accepted a Rehab Referral to: [facility] - Medication Discharge Medications: Ambulatory Orders Naloxone HCl [Narcan] 4 mg NS ASDIR PRN #1 spray 09/07/19 - Diagnosis (1) Alcohol dependence with withdrawal, uncomplicated Status: Acute (2) Uncomplicated sedative, hypnotic or anxiolytic withdrawal Status: Acute (3) Cannabis dependence, uncomplicated Status: Acute (4) Cocaine dependence, uncomplicated Status: Acute (5) Insomnia secondary to depression with anxiety Status: Acute - AMA Did Patient Leave Against Medical Advice: No
[2020-06-07] MEDS ORDERED: chlordiazePOXIDE HCL 10 MG CAPSULE PO ONE (05:00)
== END 2020-06-06 10:20 | disposition home or self-care (01) | DRG 774 ==
LOC: YASAS 08:30 → Y6N 10:37
PROVIDERS: ADMIT Allergy & Immunology; ATTEND Allergy & Immunology
PROC: HZ2ZZZZ Detoxification Services for Substance Abuse Treatment (ICD-10-PCS; principal; 2020-06-02)
DX: F10.230 Alcohol dependence with withdrawal, uncomplicated (principal); F10.220 Alcohol dependence with intoxication, uncomplicated; F13.20 Sedative, hypnotic or anxiolytic dependence, uncomplicated; F14.20 Cocaine dependence, uncomplicated; F12.20 Cannabis dependence, uncomplicated; F17.210 Nicotine dependence, cigarettes, uncomplicated; F42.9 Obsessive-compulsive disorder, unspecified; F32.9 Major depressive disorder, single episode, unspecified; F19.282 Other psychoactive substance dependence with psychoactive substance-induced sleep disorder; Z62.810 Personal history of physical and sexual abuse in childhood
CPT/HCPCS: 36415; 80053; 85027; 86780; 87389; Q0162; U0003

== ENCOUNTER 2022-07-17 18:24 | Inpatient (IN) | payer OTHER ==
[2022-07-17 22:21] VITALS: RESP 18; BMI 22.4
[2022-07-17] MEDS ORDERED: LOPERAMIDE HCL 2 MG CAPSULE PO PRN (23:54)
[2022-07-17] MEDS ORDERED: MAG HYDROX/AL HYDROX/SIMETH 30 ML UNIT-DOSE CUP PO PRN (23:54)
[2022-07-17] MEDS ORDERED: P-EPHED 60MG/TRIPROLIDI 2.5MG TABLET PO PRN (23:54)
[2022-07-17] MEDS ORDERED: MAGNESIUM CITRATE 300 ML BOTTLE PO PRN (23:54)
[2022-07-17] MEDS ORDERED: NICOTINE POLACRILEX 2 MG GUM BUC PRN (23:54)
[2022-07-17] MEDS ORDERED: BENZOCAINE/MENTHOL (CHLORASEPTIC ) LOZENGE MM PRN (23:54)
[2022-07-17] MEDS ORDERED: ACETAMINOPHEN 325 MG TABLET (FP) PO PRN ×2 (23:54)
[2022-07-17] MEDS ORDERED: IBUPROFEN 400 MG TABLET (FP) PO PRN (23:54)
[2022-07-17] MEDS ORDERED: IBUPROFEN 600 MG TABLET (FP) PO PRN (23:54)
[2022-07-17] MEDS ORDERED: hydrOXYzine PAMOATE 25 MG CAPSULE (FP) PO PRN (23:54)
[2022-07-17] MEDS ORDERED: DICYCLOMINE HCL 10 MG CAPSULE PO PRN (23:54)
[2022-07-17] MEDS ORDERED: guaiFENesin 200 MG/10 ML 10 ML UNIT-DOSE CUPS PO PRN (23:54)
[2022-07-17] MEDS ORDERED: METHOCARBAMOL 500 MG TABLET PO PRN (23:54)
[2022-07-17] MEDS ORDERED: MAGNESIUM HYDROX 2400MG/30ML ORAL SUSPENSION 30 ML CUP PO PRN (23:54)
[2022-07-17] MEDS ORDERED: NALOXONE HCL (KLOXXADO) 8 MG SPRAY NS PRN (23:54)
[2022-07-17] MEDS ORDERED: BISMUTH SUBSALICYLATE 524 MG/30 ML PO PRN (23:54)
[2022-07-17] MEDS ORDERED: ONDANSETRON *ODT* 4 MG TABLET SL PRN (23:54)
[2022-07-18 09:40] LABS: HEMATOCRIT 32.9 % (35.4-49); HEMOGLOBIN 11.8 GM/dL (11.7-16.9); MCH 33.3 pg (25.7-33.7); MCHC 35.9 g/dl (32.0-35.9); MEAN CELL VOLUME 92.7 fl (80-96); MEAN PLT VOLUME 7.6 fl (7.5-11.1); PLATELET COUNT 203 10^3/uL (134-434); RBC 3.55 M/mm3 (4.00-5.60); WHITE BLOOD COUNT 5.2 K/mm3 (4.0-10.0)
[2022-07-18] MEDS ORDERED: NICOTINE 14 MG/24 HOURS TOPICAL PATCH TD SCH (10:00)
[2022-07-18] MEDS ORDERED: PRENATAL VITAMINS W/ FOLIC ACID TABLET (FP) PO SCH (10:00)
[2022-07-18 10:03] LABS: CALCIUM 8.2 mg/dL (8.5-10.1)
[2022-07-18 10:04] LABS: BLOOD UREA NITROGEN 21.5 mg/dL (7-18)
[2022-07-18 10:07] LABS: CREATININE 0.9 mg/dL (0.55-1.3)
[2022-07-18 10:09] LABS: BILIRUBIN,TOTAL 0.6 mg/dL (0.2-1); TOT PROT 5.6 g/dl (6.4-8.2)
[2022-07-18 21:49] VITALS: BP 134/88; PULSE 76; TEMP 97.8
[2022-07-18] MEDS ORDERED: THIAMINE HCL 100 MG TABLET (FP) PO SCH (22:00)
[2022-07-18] MEDS ORDERED: QUEtiapine FUMARATE 100 MG TABLET (FP) PO SCH (22:00)
[2022-07-18] MEDS ORDERED: MELATONIN 5 MG TABLETS PO SCH (22:00)
[2022-07-19] MEDS ORDERED: SERTRALINE HCL 50 MG TABLET (FP) PO SCH (10:00)
== END 2022-07-19 04:47 | disposition left against medical advice (07) | DRG 770 ==
LOC: YASAS 18:24 → Y3N 07-18 02:26 → UNDOADMIN 07-18 02:26 → UNDODISIN 07-19 04:47
PROVIDERS: ADMIT Allergy & Immunology; ATTEND Allergy & Immunology
PROC: HZ2ZZZZ Detoxification Services for Substance Abuse Treatment (ICD-10-PCS; principal; 2022-07-18)
DX: F10.20 Alcohol dependence, uncomplicated (principal); F14.20 Cocaine dependence, uncomplicated; F12.20 Cannabis dependence, uncomplicated; F17.210 Nicotine dependence, cigarettes, uncomplicated; F19.24 Other psychoactive substance dependence with psychoactive substance-induced mood disorder; F32.A Depression, unspecified; F41.9 Anxiety disorder, unspecified; G47.00 Insomnia, unspecified; Z91.19 Patient's noncompliance with other medical treatment and regimen; Z56.0 Unemployment, unspecified; Z59.00 Homelessness unspecified
CPT/HCPCS: 36415; 80053; 85027; 86780; 93005; 93010; C9803-CS; U0003; U0005

== ENCOUNTER 2022-12-05 14:44 | Inpatient (IN) | payer OTHER ==
[2022-12-05 17:33] VITALS: BMI 21.1
[2022-12-05] MEDS ORDERED: MAG HYDROX/AL HYDROX/SIMETH 30 ML UNIT-DOSE CUP PO PRN (18:10)
[2022-12-05] MEDS ORDERED: hydrOXYzine PAMOATE 25 MG CAPSULE (FP) PO PRN (18:10)
[2022-12-05] MEDS ORDERED: MELATONIN 5 MG TABLETS PO PRN (18:10)
[2022-12-05] MEDS ORDERED: METHOCARBAMOL 500 MG TABLET PO PRN (18:10)
[2022-12-05] MEDS ORDERED: ACETAMINOPHEN 325 MG TABLET (FP) PO PRN ×2 (18:10)
[2022-12-05] MEDS ORDERED: IBUPROFEN 600 MG TABLET (FP) PO PRN (18:10)
[2022-12-05] MEDS ORDERED: guaiFENesin 200 MG/10 ML 10 ML UNIT-DOSE CUPS PO PRN (18:10)
[2022-12-05] MEDS ORDERED: IBUPROFEN 400 MG TABLET (FP) PO PRN (18:10)
[2022-12-05] MEDS ORDERED: NICOTINE POLACRILEX 2 MG GUM BUC PRN (18:10)
[2022-12-05] MEDS ORDERED: BISMUTH SUBSALICYLATE 524 MG/30 ML PO PRN (18:10)
[2022-12-05] MEDS ORDERED: DICYCLOMINE HCL 10 MG CAPSULE PO PRN (18:10)
[2022-12-05] MEDS ORDERED: LOPERAMIDE HCL 2 MG CAPSULE PO PRN (18:10)
[2022-12-05] MEDS ORDERED: NICOTINE 10 MG CARTRIDGE (INHALER) IH PRN (18:10)
[2022-12-05] MEDS ORDERED: POLYETHYLENE GLYCOL (HEALTHYLAX) 3350 17 GM PACKET PO PRN (18:10)
[2022-12-05] MEDS ORDERED: MAGNESIUM HYDROX 2400MG/30ML ORAL SUSPENSION 30 ML CUP PO PRN (18:10)
[2022-12-05] MEDS ORDERED: BENZOCAINE/MENTHOL (CHLORASEPTIC ) LOZENGE MM PRN (18:10)
[2022-12-05] MEDS ORDERED: P-EPHED 60MG/TRIPROLIDI 2.5MG TABLET PO PRN (18:10)
[2022-12-05] MEDS ORDERED: ONDANSETRON *ODT* 4 MG TABLET SL PRN (18:10)
[2022-12-05] MEDS ORDERED: diazePAM 5 MG TABLET PO PRN (18:13)
[2022-12-05] MEDS ORDERED: THIAMINE HCL 100 MG TABLET (FP) PO SCH (22:00)
[2022-12-06] MEDS ORDERED: chlordiazePOXIDE HCL 10 MG CAPSULE PO PRN
[2022-12-06] MEDS ORDERED: PRENATAL VITAMINS W/ FOLIC ACID TABLET (FP) PO SCH (10:00)
[2022-12-06] MEDS ORDERED: chlordiazePOXIDE HCL 25 MG CAPSULE PO SCH (11:00)
[2022-12-06 11:01] VITALS: BP 101/67; PULSE 61; RESP 16; TEMP 96
[2022-12-07] MEDS ORDERED: chlordiazePOXIDE HCL 10 MG CAPSULE PO SCH (05:00)
[2022-12-08] MEDS ORDERED: chlordiazePOXIDE HCL 10 MG CAPSULE PO SCH (05:00)
[2022-12-09] MEDS ORDERED: chlordiazePOXIDE HCL 10 MG CAPSULE PO ONE (05:00)
== END 2022-12-06 11:54 | disposition left against medical advice (07) | DRG 770 ==
LOC: YASAS 14:44 → Y3N 21:32
PROVIDERS: ADMIT Allergy & Immunology; ATTEND Family Medicine
PROC: HZ2ZZZZ Detoxification Services for Substance Abuse Treatment (ICD-10-PCS; principal; 2022-12-02)
DX: F10.230 Alcohol dependence with withdrawal, uncomplicated (principal); F14.20 Cocaine dependence, uncomplicated; F12.20 Cannabis dependence, uncomplicated; F17.210 Nicotine dependence, cigarettes, uncomplicated
CPT/HCPCS: C9803-CS; U0003; U0005

== ENCOUNTER 2023-11-14 08:36 | Inpatient (IN) | payer OTHER ==
[2023-11-14 09:08] VITALS: BMI 20.6
[2023-11-14] MEDS ORDERED: LORazepam 1 MG TABLET PO PRN (10:58)
[2023-11-14] MEDS ORDERED: MAGNESIUM HYDROX 2400MG/30ML ORAL SUSPENSION 30 ML CUP PO PRN (10:59)
[2023-11-14] MEDS ORDERED: BENZONATATE 200 MG CAPSULE PO PRN (10:59)
[2023-11-14] MEDS ORDERED: BENZOCAINE/MENTHOL (CHLORASEPTIC ) LOZENGE MM PRN (10:59)
[2023-11-14] MEDS ORDERED: ACETAMINOPHEN 325 MG TABLET (FP) PO PRN (10:59)
[2023-11-14] MEDS ORDERED: ONDANSETRON *ODT* 4 MG TABLET SL PRN (10:59)
[2023-11-14] MEDS ORDERED: hydrOXYzine PAMOATE 25 MG CAPSULE (FP) PO PRN (10:59)
[2023-11-14] MEDS ORDERED: IBUPROFEN 400 MG TABLET (FP) PO PRN (10:59)
[2023-11-14] MEDS ORDERED: guaiFENesin 600 MG TABLET.ER (FP) PO PRN (10:59)
[2023-11-14] MEDS ORDERED: BISMUTH SUBSALICYLATE 524 MG/30 ML PO PRN (10:59)
[2023-11-14] MEDS ORDERED: MAG HYDROX/AL HYDROX/SIMETH 30 ML UNIT-DOSE CUP PO PRN (10:59)
[2023-11-14] MEDS ORDERED: IBUPROFEN 600 MG TABLET (FP) PO PRN (10:59)
[2023-11-14] MEDS ORDERED: POLYETHYLENE GLYCOL (HEALTHYLAX) 3350 17 GM PACKET PO PRN (10:59)
[2023-11-14] MEDS ORDERED: NALOXONE HCL (KLOXXADO) 8 MG SPRAY NS PRN (10:59)
[2023-11-14] MEDS ORDERED: LOPERAMIDE HCL 2 MG CAPSULE PO PRN (10:59)
[2023-11-14] MEDS ORDERED: DICYCLOMINE HCL 10 MG CAPSULE PO PRN (10:59)
[2023-11-14] MEDS ORDERED: METHOCARBAMOL 500 MG TABLET PO PRN (10:59)
[2023-11-14] MEDS ORDERED: NALOXONE HCL 0.4 MG/ML VIAL IM PRN (10:59)
[2023-11-14] MEDS: LORazepam 2 MG TABLET PO SCH ×2 (17:31→22:39)
[2023-11-14] MEDS: THIAMINE HCL 100 MG TABLET (FP) PO SCH (22:40)
[2023-11-14] MEDS: MELATONIN 5 MG TABLETS PO SCH (22:41)
[2023-11-14] MEDS: NICOTINE POLACRILEX 2 MG GUM BUC PRN (22:42)
[2023-11-15] MEDS: LORazepam 2 MG TABLET PO SCH ×4 (05:55→23:18)
[2023-11-15] MEDS: PRENATAL VITAMINS W/ FOLIC ACID TABLET (FP) PO SCH (10:14)
[2023-11-15] MEDS: NICOTINE 21 MG/24 HOURS TOPICAL PATCH TD SCH (10:16)
[2023-11-15] MEDS: NICOTINE POLACRILEX 2 MG GUM BUC PRN ×3 (14:39→23:19)
[2023-11-15 15:21] LABS: HEMATOCRIT 39.3 % (35.4-49); HEMOGLOBIN 13.2 GM/dL (11.7-16.9); MCH 32.2 pg (25.7-33.7); MCHC 33.5 g/dl (32.0-35.9); MEAN CELL VOLUME 96.3 fl (80-96); MEAN PLT VOLUME 7.4 fl (7.5-11.1); PLATELET COUNT 263 10^3/uL (134-434); RBC 4.08 M/mm3 (4.00-5.60); WHITE BLOOD COUNT 4.3 K/mm3 (4.0-10.0)
[2023-11-15 15:24] LABS: POTASSIUM 4.4 mmol/L (3.5-5.1)
[2023-11-15 15:27] LABS: ALBUMIN 3.3 g/dl (3.4-5.0); BLOOD UREA NITROGEN 18.7 mg/dL (7-18); CALCIUM 8.7 mg/dL (8.5-10.1)
[2023-11-15 15:30] LABS: CREATININE 0.9 mg/dL (0.55-1.3)
[2023-11-15 15:32] LABS: BILIRUBIN,TOTAL 0.6 mg/dL (0.2-1); TOT PROT 6.3 g/dl (6.4-8.2)
[2023-11-15] MEDS: MELATONIN 5 MG TABLETS PO SCH (23:10)
[2023-11-15] MEDS: THIAMINE HCL 100 MG TABLET (FP) PO SCH (23:11)
[2023-11-16] MEDS: LORazepam 1 MG TABLET PO SCH ×2 (05:47→10:40)
[2023-11-16 06:15] VITALS: RESP 17; TEMP 97.7
[2023-11-16 09:24] VITALS: BP 104/50; PULSE 64
[2023-11-16] MEDS: NICOTINE 21 MG/24 HOURS TOPICAL PATCH TD SCH (10:40)
[2023-11-16] MEDS: PRENATAL VITAMINS W/ FOLIC ACID TABLET (FP) PO SCH (10:40)
[2023-11-16] MEDS: NICOTINE POLACRILEX 2 MG GUM BUC PRN (10:42)
[2023-11-17] MEDS ORDERED: LORazepam 0.5 MG TABLET PO PRN
[2023-11-17] MEDS ORDERED: LORazepam 0.5 MG TABLET PO SCH (05:00)
[2023-11-18] MEDS ORDERED: LORazepam 0.5 MG TABLET PO ONE (05:00)
== END 2023-11-16 12:03 | disposition left against medical advice (07) | DRG 770 ==
LOC: YASAS 08:36 → Y6N 10:43
PROVIDERS: ADMIT Allergy & Immunology; ATTEND Allergy & Immunology
PROC: HZ2ZZZZ Detoxification Services for Substance Abuse Treatment (ICD-10-PCS; principal; 2023-11-14)
DX: F10.230 Alcohol dependence with withdrawal, uncomplicated (principal); F14.20 Cocaine dependence, uncomplicated; F12.20 Cannabis dependence, uncomplicated; F17.210 Nicotine dependence, cigarettes, uncomplicated
CPT/HCPCS: 36415; 80053; 80307; 85027; 86780; 87635; 87811